=== PATIENT | female | born 1990 | race Caucasian/White ===

== ENCOUNTER → 2019-08-08 10:13 | Outpatient (BNVA) | payer MEDICAID, SELFPAY | PROVIDERS: PCP Nurse Practitioner Family; Visit Provider Anesthesiology | DX: M54.5 Low back pain (principal); F17.210 Nicotine dependence, cigarettes, uncomplicated; Z79.891 Long term (current) use of opiate analgesic | CPT/HCPCS: 99213; 99214 ==

== ENCOUNTER → 2019-09-28 11:15 | Outpatient (BNVA) | payer MEDICAID, SELFPAY | PROVIDERS: PCP Nurse Practitioner Family; Visit Provider Anesthesiology | DX: M54.5 Low back pain (principal); F11.90 Opioid use, unspecified, uncomplicated; F17.210 Nicotine dependence, cigarettes, uncomplicated | CPT/HCPCS: 99214 ==

== ENCOUNTER → 2019-12-27 12:54 | Outpatient (BNVA) | payer MEDICAID, SELFPAY | PROVIDERS: PCP Nurse Practitioner Family; Visit Provider Anesthesiology | DX: M54.5 Low back pain (principal); F17.210 Nicotine dependence, cigarettes, uncomplicated; Z79.891 Long term (current) use of opiate analgesic | CPT/HCPCS: 99213; 99214 ==

== ENCOUNTER → 2020-03-11 12:52 | Outpatient (BNVA) | payer MEDICAID, SELFPAY | PROVIDERS: PCP Nurse Practitioner Family; Visit Provider Anesthesiology | DX: M54.5 Low back pain (principal); F17.210 Nicotine dependence, cigarettes, uncomplicated; Z71.6 Tobacco abuse counseling; Z79.891 Long term (current) use of opiate analgesic | CPT/HCPCS: 99214 ==

== ENCOUNTER → 2020-05-06 10:58 | Outpatient (BNVA) | payer MEDICAID, SELFPAY | PROVIDERS: PCP Nurse Practitioner Family; Visit Provider Anesthesiology | DX: M54.5 Low back pain (principal); F17.210 Nicotine dependence, cigarettes, uncomplicated; Z79.891 Long term (current) use of opiate analgesic; Z71.6 Tobacco abuse counseling | CPT/HCPCS: 99213; 99214 ==

== ENCOUNTER → 2020-06-27 11:06 | Outpatient (BNVA) | payer MEDICAID, SELFPAY | PROVIDERS: PCP Nurse Practitioner Family; Visit Provider Anesthesiology | DX: M54.42 Lumbago with sciatica, left side (principal); F17.210 Nicotine dependence, cigarettes, uncomplicated; Z71.6 Tobacco abuse counseling; Z79.891 Long term (current) use of opiate analgesic | CPT/HCPCS: 99213; 99214 ==

== ENCOUNTER → 2020-09-05 07:58 | Outpatient (BNVA) | payer BC, MEDICAID, SELFPAY | PROVIDERS: PCP Nurse Practitioner Family; Visit Provider Anesthesiology | DX: M54.5 Low back pain (principal); F17.210 Nicotine dependence, cigarettes, uncomplicated; Z79.891 Long term (current) use of opiate analgesic; Z71.6 Tobacco abuse counseling | CPT/HCPCS: 99213; 99214 ==

== ENCOUNTER → 2020-10-16 11:59 | Outpatient (BNVA) | payer BC, MEDICAID, SELFPAY | PROVIDERS: PCP Nurse Practitioner Family; Visit Provider Specialist | DX: M79.606 Pain in leg, unspecified (principal) | CPT/HCPCS: 73590 ==

== ENCOUNTER → 2020-10-29 11:08 | Outpatient (BNVA) | payer BC, MEDICAID, SELFPAY | PROVIDERS: PCP Nurse Practitioner Family; Visit Provider Nurse Practitioner | DX: M54.5 Low back pain (principal); M79.604 Pain in right leg; M79.605 Pain in left leg; F17.210 Nicotine dependence, cigarettes, uncomplicated; Z79.891 Long term (current) use of opiate analgesic; Z71.6 Tobacco abuse counseling | CPT/HCPCS: 99215 ==

== ENCOUNTER 2020-11-04 09:11 | Outpatient (CLI) | payer BC, MEDICAID, SELFPAY ==
--- NOTE | 2020-11-04 09:17 | NM_ITS ---
WS: [id number] THREE-PHASE BONE SCAN HISTORY: M84.369A - Stress fracture, unspecified tibia and fibula, initial encounter for fracture COMPARISON: RIGHT tibia-fibula 10/16/2020 and 09/17/2020 Patient is is injected with 25.8 mCi Tc99m HDP intravenously. Immediate angiographic phase imaging is performed over the area of concern. Static blood pool imaging also performed. Two-hour whole-body sc intigrams performed in anterior and posterior projections. Additional large field of view imaging sub mitted as necessary. Angiographic and static blood pool phase imaging is normal central over the lower extremities. On the two-hour delayed imaging there is linear area of increased uptake along the proximal lateral t ibia. Moderate increased uptake is multifocal but extends along the expected location of the orthoped ic plate. On the lateral projection there is increased uptake along the lateral tibial plateau was sp aring centrally. On the prior recent radiograph there is no evidence for loosening or fracture. No change in the trabe cular pattern. NM/NM bone 3 phase [id number] IMPRESSION: 1. Moderate increased uptake along the proximal lateral tibial orthopedic plat e and across the tibial plateau. The area of increased uptake corresponds to th e orthopedic hardware. Radiographically no evidence for loosening is identified . With history of injury proceeding pain there may be some mild displacement or movement of the hardware. Also loosening without radiographic evidence should be considered as a possible etiology. 2. No evidence for an infection.
== END 2020-11-04 09:12 | disposition home or self-care (01) ==
LOC: NM 09:14
PROVIDERS: PCP Nurse Practitioner Family; Visit Provider Specialist
DX: M84.369A Stress fracture, unspecified tibia and fibula, initial encounter for fracture (principal); X58.XXXA Exposure to other specified factors, initial encounter
CPT/HCPCS: 78315; A9561

== ENCOUNTER 2020-11-24 13:11 | Outpatient (CLI) | payer BC, MEDICAID, SELFPAY ==
--- NOTE | 2020-11-24 13:16 | MR_ITS ---
WS: [id number] MRI BRAIN WITHOUT CONTRAST HISTORY: MEMORY IMPAIRMENT COMPARISON: 07/31/2014 TECHNIQUE: Diffusion imaging, multiplanar T1, T2 and FLAIR imaging obtained. No evidence for acute infarct or hemorrhage. Willett-white matter differentiation is normal. No remote or acute infarcts are volume loss. Ventricles and extra-axial spaces are normal. No inferior displacement of cerebellar tonsils. The sella turcica and pituitary gland are unremarkabl e. There is a well-circumscribed soft tissue mass superficial to the LEFT parotid gland. Mass is incompl etely visualized on all sequences. Mass is low signal on the T1 and increased on the T2 sequences. Ma ss measures 2.0 x 2.3 cm. New since 07/31/2014. No dural venous sinus abnormality. Focal narrowing in the RIGHT A1 segment is probably congenital. Paranasal sinuses: Clear. Mastoid air cells: Normal. Calvarium and scalp: Intact. MR/MR head wo con* [id number] IMPRESSION: 1. No infarct or significant white matter disease. 2. No significant atrophy. 3. Incompletely visualized mass superficial to the LEFT parotid gland. New mas s since 2014. Recommend follow-up ultrasound for further characterization. This mass should be palpable.
== END 2020-11-24 13:12 | disposition home or self-care (01) ==
PROVIDERS: PCP Nurse Practitioner Family; Visit Provider Nurse Practitioner Family
DX: R41.3 Other amnesia (principal); R22.0 Localized swelling, mass and lump, head
CPT/HCPCS: 70551

== ENCOUNTER → 2020-12-03 10:01 | Outpatient (BNVA) | payer BC, MEDICAID, SELFPAY | PROVIDERS: PCP Nurse Practitioner Family; Visit Provider Anesthesiology | DX: G89.29 Other chronic pain (principal); M54.5 Low back pain; M79.604 Pain in right leg; F17.210 Nicotine dependence, cigarettes, uncomplicated; Z71.6 Tobacco abuse counseling; Z79.891 Long term (current) use of opiate analgesic | CPT/HCPCS: 99214 ==

== ENCOUNTER 2020-12-05 18:03 | Outpatient (CLI) | payer BC, MEDICAID, SELFPAY ==
[2020-12-05 18:40] LABS: INR 1.01 (0.8-1.2)
[2020-12-05 18:41] LABS: Partial Thromboplastin Time 32.8 SECONDS (23.9-36.7)
== END 2020-12-05 18:04 | disposition home or self-care (01) ==
PROVIDERS: PCP Nurse Practitioner Family; Visit Provider Nurse Practitioner Family
DX: R23.8 Other skin changes (principal)
CPT/HCPCS: 85610; 85730

== ENCOUNTER 2021-01-15 14:00 | Outpatient (CLI) | payer BC, MEDICAID, SELFPAY ==
--- NOTE | 2021-01-15 14:07 | CT_ITS ---
WS: [id number] CT NECK WITH CONTRAST HISTORY: NEOPLASM OF PAROTID SALIVARY GLAND TECHNIQUE: Contiguous 5 mm axial images are performed through the neck with intravenous contrast. Sag ittal and coronal reformats are also submitted. All CT scans at [facility] use at least o ne of these dose optimization techniques: automated exposure control; mA and/or kV adjustment per pat ient size (includes targeted exams where dose is matched to clinical indication); or iterative recons truction. CONTRAST: CONTRAST: Omnipaque 300; 95 mL IV. DLP: 474.05 mGy.cm COMPARISON: MRI head 11/24/2020 Nasopharynx, oropharynx, hypopharynx and larynx are unremarkable. No soft tissue masses or abnormal e nhancement. Torus tubarius and fossa of Rosenmuller and parapharyngeal fat are normal. Small bilateral cervical chain lymph nodes are less than a centimeter. Largest lymph node is 9 mm at level IIa on the RIGHT. Submandibular glands are normal size. Normal RIGHT parotid gland. Again noted is the well-circumscrib ed homogeneous mass in the preauricular region abutting the LEFT superficial parotid lobe. This mass slightly displaces the parotid and may not actually be arising from the parotid gland but within the preauricular soft tissue. Mass measures 2.0 x 1.5 x 1.7 cm. There is also incomplete separation from the posterior masseter muscle on the LEFT. The retromandibular vein is not significantly displaced. No osseous abnormalities. Visualized portions of the skull base demonstrate no abnormalities. Orbits and globes are within norm al limits. No soft tissue masses. Visualized paranasal sinuses and mastoid air cells are normal. Lung apices are clear. CT/CT neck w con* [id number] IMPRESSION: 1. Well-circumscribed soft tissue mass in the LEFT preauricular space measures 2.0 cm in length by 1.5 x 1.7 cm. There is mass effect upon the superficial LE FT parotid lobe suggesting this may be external but inseparable from the paroti d. There is also contact on the masseter muscle. Mass does not significantly en duncan. Abnormal lymph node, Warthin tumor and first branchial cleft cyst should be considered. 2. Subcentimeter bilateral cervical chain lymph nodes.
[2021-01-15] MEDS: iohexol 300 mg/mL 100 mL Btl IV (14:33)
== END 2021-01-15 14:01 | disposition home or self-care (01) ==
PROVIDERS: PCP Nurse Practitioner Family; Visit Provider Specialist
DX: D37.030 Neoplasm of uncertain behavior of the parotid salivary glands (principal)
CPT/HCPCS: 70491

== ENCOUNTER → 2021-02-03 11:02 | Outpatient (BNVA) | payer BC, MEDICAID, SELFPAY | PROVIDERS: PCP Nurse Practitioner Family; Visit Provider Anesthesiology | DX: M54.5 Low back pain (principal); F17.210 Nicotine dependence, cigarettes, uncomplicated; Z79.891 Long term (current) use of opiate analgesic | CPT/HCPCS: 99213 ==

== ENCOUNTER → 2021-04-01 14:08 | Outpatient (BNVA) | payer BC, MEDICAID, SELFPAY | PROVIDERS: PCP Nurse Practitioner Family; Visit Provider Anesthesiology | DX: G89.29 Other chronic pain (principal); M54.5 Low back pain; F17.210 Nicotine dependence, cigarettes, uncomplicated; Z79.891 Long term (current) use of opiate analgesic | CPT/HCPCS: 99214 ==

== ENCOUNTER → 2021-04-08 11:03 | Outpatient (BNVA) | payer BC, MEDICAID, SELFPAY | PROVIDERS: PCP Nurse Practitioner Family; Visit Provider Internal Medicine Rheumatology | DX: M25.50 Pain in unspecified joint (principal); Z79.899 Other long term (current) drug therapy; M79.7 Fibromyalgia | CPT/HCPCS: 99203; 99204 ==

== ENCOUNTER 2021-04-10 16:50 | Outpatient (CLI) | payer BC, MEDICAID, SELFPAY ==
--- NOTE | 2021-04-10 17:07 | XRR_ITS ---
PROCEDURE INFORMATION: Exam: XR Right Hand Exam date and time: 04/10/2021 5:07 PM Age: 30 years old Clinical indication: Pain; Hand; Right; Additional info: M25.50 - pain in unspecified joint TECHNIQUE: Imaging protocol: XR Right hand. Views: 3 or more views. COMPARISON: No relevant prior studies available. FINDINGS: Bones/joints: Oblique lucency in the proximal 5th phalanx, on the oblique view only, is most likely a nutrient channel. No fracture is visualized on the other views. The bones are intact and in normal alignment. Soft tissues: Normal. XR/XR hand RT min 3V* [id number] IMPRESSION: 1. Lucency in the proximal 5th phalanx is most likely a nutrient channel. If there is a history of trauma and pain to this region, a hairline fracture cannot be entirely excluded. 2. Otherwise, no acute finding.
--- NOTE | 2021-04-10 17:07 | XRR_ITS ---
PROCEDURE INFORMATION: Exam: XR Left Hand Exam date and time: 04/10/2021 5:07 PM Age: 30 years old Clinical indication: Pain; Hand; Left; Prior surgery; Additional info: M25.50 - pain in unspecified joint TECHNIQUE: Imaging protocol: XR Left hand. Views: 3 or more views. COMPARISON: No relevant prior studies available. FINDINGS: Bones/joints: Metal plate and screws in the distal left radius, transversing an old healed fracture. The bones are intact and in normal alignment. Soft tissues: Normal. XR/XR hand LT min 3V* [id number] IMPRESSION: No acute finding.
[2021-04-10 18:20] LABS: C Reactive Protein 0.3 mg/L (0.0-4.9)
[2021-04-10 18:46] LABS: Erythrocyte Sedimentation Rate 5 mm/hr (0-15)
[2021-04-13 15:33] LABS: Cyclic Citrullinated Peptide <16 UNITS
[2021-04-23 15:52] LABS: Gliadin Ab.IgA 1.2 U/mL; Gliadin Ab.IgG <1.0 U/mL; Immunoglobulin A 269 mg/dL (47-310); Tissue Transglutaminase IgA Ab <1.0 U/mL; Tissue transglutaminase Ab.IgG <1.0 U/mL
== END 2021-04-10 16:51 | disposition home or self-care (01) ==
LOC: RAD 16:54
PROVIDERS: PCP Nurse Practitioner Family; Visit Provider Internal Medicine Rheumatology
DX: M25.50 Pain in unspecified joint (principal); M79.7 Fibromyalgia; Z79.899 Other long term (current) drug therapy
CPT/HCPCS: 36415; 73130; 82784; 83516; 85651; 86140

== ENCOUNTER → 2021-05-28 08:01 | Outpatient (BNVA) | payer BC, MEDICAID, SELFPAY | PROVIDERS: PCP Nurse Practitioner Family; Visit Provider Anesthesiology | DX: G89.29 Other chronic pain (principal); M54.50 Low back pain, unspecified; M79.7 Fibromyalgia; F17.210 Nicotine dependence, cigarettes, uncomplicated; Z71.6 Tobacco abuse counseling; Z79.891 Long term (current) use of opiate analgesic | CPT/HCPCS: 99214 ==

== ENCOUNTER → 2021-06-10 11:06 | Outpatient (BNVA) | payer BC, MEDICAID, SELFPAY | PROVIDERS: PCP Nurse Practitioner Family; Visit Provider Specialist | DX: G43.711 Chronic migraine without aura, intractable, with status migrainosus (principal); M79.7 Fibromyalgia; Z87.81 Personal history of (healed) traumatic fracture; F17.210 Nicotine dependence, cigarettes, uncomplicated | CPT/HCPCS: 99204 ==

== ENCOUNTER → 2021-07-30 08:01 | Outpatient (BNVA) | payer BC, MEDICAID, SELFPAY | PROVIDERS: PCP Nurse Practitioner Family; Visit Provider Anesthesiology | DX: G89.29 Other chronic pain (principal); M54.50 Low back pain, unspecified; M79.7 Fibromyalgia; F17.210 Nicotine dependence, cigarettes, uncomplicated; Z79.891 Long term (current) use of opiate analgesic | CPT/HCPCS: 99214 ==

== ENCOUNTER → 2021-08-11 15:40 | Outpatient (BNVA) | payer BC, MEDICAID, SELFPAY | PROVIDERS: PCP Nurse Practitioner Family; Visit Provider Specialist | DX: G43.711 Chronic migraine without aura, intractable, with status migrainosus (principal) | CPT/HCPCS: 99213; 99214 ==

== ENCOUNTER 2022-05-19 12:06 | Outpatient (CLI) | payer BC, MEDICAID, SELFPAY ==
--- NOTE | 2022-05-19 12:38 | XR_ITS ---
WS: [id number] Exam: XR chest 2V* [id number] Date/Time of Exam: 05/19/2022 12:42 PM Reason For Exam: NEOPLASM Comparison 03/28/2015. The lungs are clear and fully inflated. Normal cardiomediastinal silhouette. Several old left rib fra ctures noted. No pleural effusions. XR/XR chest 2V* [id number] IMPRESSION: 1. No acute cardiopulmonary finding.
== END 2022-05-19 12:07 | disposition home or self-care (01) ==
LOC: RAD 12:18
PROVIDERS: PCP Nurse Practitioner Family; Visit Provider Specialist
DX: D37.030 Neoplasm of uncertain behavior of the parotid salivary glands (principal)
CPT/HCPCS: 71046

== ENCOUNTER 2022-08-20 19:31 | Emergency (ER) | payer BC, MEDICAID, SELFPAY ==
[2022-08-20 19:42] VITALS: BP 121/74; PULSE 110; RESP 16; TEMP 37.6; O2SAT 100
--- NOTE | 2022-08-20 20:36 | W.ED.HA ---
HPI - Headache General: Chief Complaint: Headache Stated Complaint: headache Time Seen by Provider: 08/20/22 20:32 History of Present Illness: 32-year-old female comes in today with a severe headache. Patient reports this is her worst headache she is ever had. Patient reports that is different than her usual migraine. Patient states the headache started yesterday but woke up this morning in severe discomfort. Patient does have a history of chronic migraines, chronic neck pain, chronic low back pain, and long-term use of opiate analgesics. Patient reports no fever. Patient reports light sensitivity and nausea. Associated symptoms: Reports nausea; Deny fever(s) Review of Systems Const: Denies: fever(s) GI: Reports: nausea Musc: Reports: neck pain Neuro: Reports: headache(s) PFSH ED PFSH: Medical History Chronic narcotic use Encounter for long-term opiate analgesic use Encounter for smoking cessation counseling Fibromyalgia Hx of fracture of lower leg screws and plate in right leg Hx of fracture of wrist 2014 left Joint pain Low back pain Opioid contract exists Opioid contract exists Tobacco use Surgical History S/P ORIF (open reduction internal fixation) fracture Family History Father Cancer Mother Cancer Chronic kidney disease (CKD) Other CAD (coronary artery disease) Hypertension Lung disease Rheumatoid arthritis Denies family history of Diabetes Lupus Stroke Social History Alcohol intake: never Marital status: Single Current occupational status: employed History of recent travel: No Physical Exam Const: COMMON NORMALS: alert HENMT: COMMON NORMALS: normocephalic HEAD & SCALP: normocephalic Neck/C-Spine: COMMON NORMALS: full ROM and no meningeal signs Resp: COMMON NORMALS: normal respiratory effort Cardio: COMMON NORMALS: regular rate and regular rhythm RATE: regular rate RHYTHM: regular rhythm GI: COMMON NORMALS: Soft to palpation and non-tender PALPATION: Yes Soft to palpation Extremity: COMMON NORMALS: normal to inspection and full ROM Neuro: SENSORIUM/ORIENTATION: Yes alert MENINGEAL SIGNS: Yes no meningeal signs Skin: COMMON NORMALS: turgor normal GENERAL SKIN EXAM: turgor normal Course Vital Signs: Vital signs: Vital Signs Temperature 99.7 F H 08/20/22 19:42 Pulse Rate 89 08/20/22 22:21 Respiratory Rate 18 08/20/22 22:21 Blood Pressure 123/77 08/20/22 21:17 Pulse Oximetry 98 08/20/22 22:21 Oxygen Delivery Me thod 08/20/22 21:17 MDM - Headache Medical Decision Making 32-year-old female comes in today with complaints of severe headache. Patient describes as the worst headache she is ever had. On exam no focal neurodeficits. Patient moves all extremities well. No meningeal signs. Vital signs are normal. Differential diagnosis includes but not limited to migraine headache, tension headache, intervertebral disc disease, facet arthropathy, malingering. CT of the head and neck were unremarkable except for some mild sinusitis. Patient denies any sinus symptoms. CBC and CMP were unremarkable. CRP was bumped up a little bit at 27. No signs of infection or severe illness is noted. Patient was treated for migraine headache with IV medications including ketorolac, dexamethasone, Reglan, and morphine. Patient had improvement of headaches and was discharged to home with recommendations to continue routine care and follow-up with primary care. Patient stated understanding. Lab Data 08/20/22 20:53 08/20/22 20:53 Radiology Impressions Cervical Spine CT 08/20/22 20:40 IMPRESSION: No acute fracture. Head CT 08/20/22 20:40 IMPRESSION: 1. No acute intracranial abnormality. 2. Possibly acute right sphenoid, maxillary and frontal sinusitis. Laboratory Results WBC 10.7 10^3/uL (4.0-10.0) H 08/20/22 20:53 RBC 4.42 10^6/uL (4.1-5.3) 08/20/22 20:53 Hgb 12.2 g/dL (11.5-15.3) 08/20/22 20:53 Hct 38.9 % (37.0-47.0) 08/20/22 20:53 MCV 88.0 fl (81-99) 08/20/22 20:53 MCH 27.6 pg (28.0-34.0) L 08/20/22 20:53 MCHC 31.4 g/dL (30.0-36.0) 08/20/22 20:53 RDW 13.7 % (12.1-15.1) 08/20/22 20:53 Plt Count 252 10^3/cmm (130-400) 08/20/22 20:53 MPV 9.5 fL (7.4-10.4) 08/20/22 20:53 Neut % (Auto) 64.9 % 08/20/22 20:53 Lymph % (Auto) 25.0 % 08/20/22 20:53 Wells % (Auto) 8.1 % 08/20/22 20:53 Eos % (Auto) 1.5 % 08/20/22 20:53 Baso % (Auto) 0.3 % 08/20/22 20:53 Neut # (Auto) 6.97 10^3/uL (1.8-7.7) 08/20/22 20:53 Lymph # (Auto) 2.7 10^3/uL (0.8-4.8) 08/20/22 20:53 Wells # (Auto) 0.9 10^3/uL (0.2-0.9) 08/20/22 20:53 Eos # (Auto) 0.2 10^3/uL (0.0-0.8) 08/20/22 20:53 Baso # (Auto) 0.0 10^3/uL (0.0-0.1) 08/20/22 20:53 Nucleated RBC % (auto) 0 % 08/20/22 20:53 Nucleated RBCs # 0.0 /100WBC 08/20/22 20:53 Sodium 137 mmol/L (136-145) 08/20/22 20:53 Potassium 3.9 mmol/L (3.5-5.1) 08/20/22 20:53 Chloride 101 mmol/L (98-107) 08/20/22 20:53 Carbon Dioxide 28 mmol/L (22-29) 08/20/22 20:53 Anion Gap 11.9 (5-19) 08/20/22 20:53 BUN 10 mg/dL (6-20) 08/20/22 20:53 Creatinine 0.4 mg/dL (0.5-0.9) L 08/20/22 20:53 GFR Calculation 182.7 mL/min (90-130) H 08/20/22 20:53 Glucose 95 mg/dL (65-115) 08/20/22 20:53 Calculated Osmolality 283 mOsm/kg (285-295) L 08/20/22 20:53 Calcium 9.2 mg/dL (8.5-10.5) 08/20/22 20:53 Total Bilirubin 0.2 mg/dL (0.15-1.2) 08/20/22 20:53 AST 13 U/L (0-32) 08/20/22 20:53 ALT 11 U/L (0-33) 08/20/22 20:53 Alkaline Phosphatase 83 U/L (35-105) 08/20/22 20:53 C-Reactive Protein 29.2 mg/L (0.0-4.9) H 08/20/22 20:53 Total Protein 7.0 g/dL (6.6-8.7) 08/20/22 20:53 Albumin 4.2 g/dL (3.5-5.2) 08/20/22 20:53 Globulin 2.8 g/dL (1.3-4.6) 08/20/22 20:53 Discharge Plan Discharge Patient Disposition: Home Clinical Impression: Migraine Qualifiers: Migraine type: unspecified Status migrainosus presence: with status migrainosus Intractability: intractable Qualified Code(s): G43.911 - Migraine, unspecified, intractable, with status migrainosus Condition: Stable Prescriptions: No Action hydrocodone-acetaminophen 10-325 mg tablet 1 tab PO .5 times a day PRN (Reason: pain) 30 Days Qty: 150 0RF Rx Instructions: fill on or after 08/04/21 hydrocodone-acetaminophen 10-325 mg tablet 1 tab PO .5 times a day PRN (Reason: pain) 30 Days Qty: 150 0RF Rx Instructions: fill on or after 09/03/21 propranolol 10 mg tablet 10 mg PO BID Qty: 60 3RF Savella 50 mg tablet 50 mg PO BID 30 Days Qty: 60 1RF amitriptyline 25 mg tablet See Rx Instructions .ROUTE .COMPLEX Qty: 30 0RF Dose Instruction: TAKE 1 TABLET BY MOUTH AT BEDTIME Rx Instructions: TAKE 1 TABLET BY MOUTH AT BEDTIME Discharge Orders: Discharge ED (Routine); Ordered 08/20/22 Ordered By: Cesar [place] Referrals: Shai,Kelsea, [employer] [Primary Care Provider] - Discharge Diet: Usual diet Discharge Activity: Increase activity as tolerated Patient Instructions: Headache Activity Restrictions/Additional Instructions: Home and rest. Drink plenty of fluids. Continue with routine care as directed. Follow-up with primary care for further instruction. Return to ED for new concerns. 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
--- NOTE | 2022-08-20 20:40 | CTR_ITS ---
PROCEDURE INFORMATION: Exam: CT Cervical Spine Without Contrast Exam date and time: 08/20/2022 9:03 PM Age: 32 years old Clinical indication: Neck pain; Additional info: Neck pain, headache TECHNIQUE: Imaging protocol: Computed tomography of the cervical spine without contrast. Radiation optimization: All CT scans at this facility use at least one of these dose optimization techniques: automated exposure control; mA and/or kV adjustment per patient size (includes targeted exams where dose is matched to clinical indication); or iterative reconstruction. Other protocol: This patient has received [address] and 0 known cardiac nuclear medicine studies in the 12 months prior to the current study. COMPARISON: CR XR cervical spine 3V* [id number] 09/19/2018 12:29 PM RADIATION DOSE METRICS: Total DLP (mGy-cm): 175.87 FINDINGS: Bones/joints: Spinal alignment is normal. Vertebral body height is maintained. No acute fracture. No spinal canal stenosis. Lungs: Lung apices are clear. Soft tissues: There is a 5 mm nodule or cyst superficial to the left parotid gland which measured 18 mm on 01/15/2021. CT/CT cervical spin wo con* [id number] IMPRESSION: No acute fracture.
--- NOTE | 2022-08-20 20:40 | CTR_ITS ---
PROCEDURE INFORMATION: Exam: CT Head Without Contrast Exam date and time: 08/20/2022 8:59 PM Age: 32 years old Clinical indication: Pain; Headache; Migraine; Additional info: Headache, most severe TECHNIQUE: Imaging protocol: Computed tomography of the head without contrast. Radiation optimization: All CT scans at this facility use at least one of these dose optimization techniques: automated exposure control; mA and/or kV adjustment per patient size (includes targeted exams where dose is matched to clinical indication); or iterative reconstruction. Other protocol: This patient has received [address] and 0 known cardiac nuclear medicine studies in the 12 months prior to the current study. COMPARISON: MR head wo con* [id number] 11/24/2020 11:18 AM RADIATION DOSE METRICS: Total DLP (mGy-cm): 1091.5 FINDINGS: Brain: The brain is unremarkable. There is no mass effect or significant white matter disease. There is no acute intracranial hemorrhage. Cerebral ventricles: There is no significant ventricular dilation. The basal cisterns are unremarkable. Paranasal sinuses: There is marked mucosal thickening in the right maxillary sinus and in the common sphenoid sinus. There is an air-fluid level in the sphenoid sinus. There is mucosal thickening in the right frontal sinus. Mastoid air cells: The mastoid air cells are clear. Bones/joints: The calvarium is intact. Soft tissues: The visible extracranial soft tissues are unremarkable. CT/CT head wo con* [id number] IMPRESSION: 1. No acute intracranial abnormality. 2. Possibly acute right sphenoid, maxillary and frontal sinusitis.
[2022-08-20 21:02] LABS: Basophils % 0.3 %; Eosinophils # 0.2 10^3/uL (0.0-0.8); Eosinophils % 1.5 %; Hematocrit 38.9 % (37.0-47.0); Hemoglobin 12.2 g/dL (11.5-15.3); Lymphocytes # 2.7 10^3/uL (0.8-4.8); Mean Corpuscular HGB Conc 31.4 g/dL (30.0-36.0); Mean Corpuscular Hemoglobin 27.6 pg (28.0-34.0); Mean Platelet Volume 9.5 fL (7.4-10.4); Monocytes # 0.9 10^3/uL (0.2-0.9); Monocytes % 8.1 %; Neutrophils # 6.97 10^3/uL (1.8-7.7); Neutrophils % 64.9 %; Nucleated Red Blood Cells % 0 %; Platelet Count 252 10^3/cmm (130-400); Red Blood Count 4.42 10^6/uL (4.1-5.3); Red Cell Distribution Width 13.7 % (12.1-15.1); White Blood Count 10.7 10^3/uL (4.0-10.0)
[2022-08-20 21:17] VITALS: BP 123/77; PULSE 113; RESP 22; O2SAT 98
[2022-08-20 21:17] LABS: Alanine Aminotransferase 11 U/L (0-33); Albumin Level 4.2 g/dL (3.5-5.2); Alkaline Phosphatase 83 U/L (35-105); Anion Gap 11.9 (5-19); Aspartate Amino Transferase 13 U/L (0-32); Blood Urea Nitrogen 10 mg/dL (6-20); C Reactive Protein 29.2 mg/L (0.0-4.9); Calcium 9.2 mg/dL (8.5-10.5); Carbon Dioxide 28 mmol/L (22-29); Chloride 101 mmol/L (98-107); Globulin 2.8 g/dL (1.3-4.6); Glomerular Filtration Rate 182.7 mL/min (90-130); Glucose 95 mg/dL (65-115); Osmolality Calculated 283 mOsm/kg (285-295); Potassium 3.9 mmol/L (3.5-5.1); Sodium 137 mmol/L (136-145); Total Bilirubin 0.2 mg/dL (0.15-1.2)
[2022-08-20] MEDS: metoclopramide 5 mg/mL SDV 2 mL 10 MG IVP (21:29)
[2022-08-20] MEDS: sodium chloride 0.9% 500 ML 999 ML IV (21:29)
[2022-08-20] MEDS: dexamethasone 4 mg/mL INJ 8 MG IVP (21:30)
[2022-08-20] MEDS: morphine 4 mg/mL SDV 1 mL IVP (21:31)
[2022-08-20] MEDS: ketorolac 30 mg/mL INJ IVP (21:31)
[2022-08-20 22:21] VITALS: PULSE 89; RESP 18; O2SAT 98
== END 2022-08-20 22:22 | disposition home or self-care (01) ==
PROVIDERS: Emergency Provider Nurse Practitioner Family; PCP Nurse Practitioner Family
DX: G43.911 Migraine, unspecified, intractable, with status migrainosus (principal)
CPT/HCPCS: 36415; 70450; 72125; 80053; 85025; 86140; 96361; 96374; 96375; 99285; J1100; J1885; J2270; J2765; J7040

== ENCOUNTER 2023-09-01 15:56 | Emergency (ER) | payer MEDICAID, SELFPAY ==
[2023-09-01 15:59] VITALS: BP 132/87; PULSE 112; RESP 16; TEMP 36.7; O2SAT 100
--- NOTE | 2023-09-01 16:03 | USR_ITS ---
PROCEDURE INFORMATION: Exam: US Abdomen, Limited; Right Upper Quadrant Exam date and time: 09/01/2023 4:49 PM Age: 33 years old Clinical indication: Abdominal pain; Additional info: Ruq pain TECHNIQUE: Imaging protocol: Real time ultrasound of the abdomen with image documentation. Limited exam focused on the right upper quadrant. COMPARISON: US gall bladder [id number] 07/04/2018 2:53 PM FINDINGS: Liver: Normal. No masses. Gallbladder: There is gallbladder sludge with small gallstones. Sonographic Toscano's sign is positive. No gallbladder wall thickening with the gallbladder wall measuring 2.4 mm. No pericholecystic fluid. Biliary ducts: The CBD measures 8.6 mm. No definite CBD stone is visualized. Pancreas: Visualized pancreas is unremarkable. Right kidney: Normal. No mass. No hydronephrosis. The right kidney measures 11.6 x 6.1 x 6.4 cm. There is mild pelviectasis. US/US gall bladder [id number] IMPRESSION: 1. Cholelithiasis with positive Toscano's sign. No over distended gallbladder, pericholecystic fluid or gallbladder wall thickening to suggest sonographic signs of acute cholecystitis. However early acute cholecystitis can have this appearance. 2. Dilated CBD at the level of the nathan hepatis suggestive of distal CBD obstruction by possible gallstone.
--- NOTE | 2023-09-01 16:21 | ED_ITS ---
HPI - Abdominal Pain 2 General: Chief Complaint: Abdominal Pain Stated Complaint: N/V, abd pain Time Seen by Provider: 09/01/23 16:05 Source: patient Mode of arrival: ambulatory Limitations: no limitations History of Present Illness: 33-year-old female states been having ab dominal pain over the last 2 days states pain is in her right upper quadrant seems to radiate to her back she has had some nausea she denies any vomiting or diarrhea. States pain sharp in nature rates it a 7 out of 10 denies any chest pain denies any fevers. Associated Symptoms: Denies chills, diarrhea, fever(s), nausea and vomiting Review of Systems 2 Const: Denies: fever(s), chills, body aches or change in appetite ENMT: Denies: throat pain or dental pain Card: Denies: chest pain Resp: Denies: dyspnea GI: Reports: abdominal pain; Denies: nausea, vomiting or diarrhea Musc: Denies: neck pain or back pain Skin/Breast: Denies: rash Neuro: Denies: headache(s) PFSH ED 2 PFSH: Medical History Joint pain Fibromyalgia Opioid contract exists Encounter for smoking cessation counseling Encounter for long-term opiate analgesic use Opioid contract exists Hx of fracture of lower leg screws and plate in right leg Hx of fracture of wrist 2014 left Tobacco use Chronic narcotic use Low back pain Surgical History S/P ORIF (open reduction internal fixation) fracture Family History Father Cancer Mother Cancer Chronic kidney disease (CKD) Other CAD (coronary artery disease) Hypertension Lung disease Rheumatoid arthritis Denies family history of Diabetes Lupus Stroke Social History Alcohol intake: never Substance/Drug Use: never Marital status: Single Current occupational status: employed Physical Exam 2 Const: COMMON NORMALS: no acute distress, patient oriented x3 and healthy appearing HENMT: COMMON NORMALS: normocephalic and atraumatic HEAD & SCALP: n ormocephalic and atraumatic Neck/C-Spine: COMMON NORMALS: full ROM and supple Chest: COMMONS NORMALS: normal inspection of the chest Resp: COMMON NORMALS: normal respiratory effort Cardio: COMMON NORMALS: regular rate, regular rhythm and No murmurs present (Cardio) RATE: regular rate RHYTHM: regular rhythm GI: COMMON NORMALS: Normal to inspection, nondistended, normoactive bowel sounds present, Soft to palpation and no masses PALPATION: Yes Soft to palpation and Yes Tenderness to palpation present (GI) Details: RUQ Extremity: COMMON NORMALS: normal to inspection and full ROM Neuro: COMMON NORMALS: patient oriented x3, moves all extremities and no focal motor deficits Psych: COMMON NORMALS: mental status grossly normal, Normal thought process present and cooperative THOUGHT PROCESS: Normal thought process present Skin: COMMON NORMALS: no rashes or lesions noted and no wounds GENERAL SKIN EXAM: no rashes or lesions noted Course 2 Vital Signs: Vital signs: Vital Signs Temperature 98.1 F 09/01/23 15:59 Pulse Rate 112 H 09/01/23 15:59 Respiratory Rate 16 09/01/23 15:59 Blood Pressure 122/86 09/01/23 17:01 Pulse Oximetry 100 09/01/23 17:01 Oxygen Delivery Me thod Room Air 09/01/23 17:01 MDM - Abdominal Pain Medical Decision Making Patient presents with abdominal pain consistent with biliary colic ultrasound did show gallstones no signs of acute cholecystitis her pain is much improved here abdominal exam is benign at discharge. Will start Augmentin along with pain meds nausea medicine we will get her follow-up with surgery she is return if worsening she understands agrees to plan. Medical Records I reviewed the patient's medical records. Lab Data I reviewed the patient's lab results. 09/01/23 16:38 09/01/23 16:38 Labs/Radiology: Radiology Impressions Gallbladder Ultrasound 09/01/23 16:03 IMPRESSION: 1. Cholelithiasis with positive Toscano's sign. No over distended gallbladder, pericholecystic fluid or gallbladder wall thickening to suggest sonographic signs of acute cholecystitis. However early acute cholecystitis can have this appearance. 2. Dilated CBD at the level of the nathan hepatis suggestive of distal CBD obstruction by possible gallstone. Laboratory Results WBC 5.83 10^3/uL (3.29-11.43) 09/01/23 16:38 RBC 4.82 10^6/uL (3.85-5.65) 09/01/23 16:38 Hgb 13.30 g/dL (11.27-16.99) 09/01/23 16:38 Hct 42.3 % (36-47) 09/01/23 16:38 MCV 87.8 fl (85-98) 09/01/23 16:38 MCH 27.6 pg (27-33) 09/01/23 16:38 MCHC 31.4 g/dL (30-55) 09/01/23 16:38 RDW 13.1 % (12.1-15.1) 09/01/23 16:38 Plt Count 257 10^3/cmm (157-399) 09/01/23 16:38 MPV 9.6 fL (7.4-10.4) 09/01/23 16:38 Neut % (Auto) 56.6 % 09/01/23 16:38 Lymph % (Auto) 37.2 % 09/01/23 16:38 [place]bar[place] % (Auto) 4.3 % 09/01/23 16:38 Eos % (Auto) 1.5 % 09/01/23 16:38 Baso % (Auto) 0.2 % 09/01/23 16:38 Neut # (Auto) 3.30 10^3/uL (1.8-7.7) 09/01/23 16:38 Lymph # (Auto) 2.2 10^3/uL (0.8-4.8) 09/01/23 16:38 [place]barger # (Auto) 0.3 10^3/uL (0.2-0.9) 09/01/23 16:38 Eos # (Auto) 0.1 10^3/uL (0.0-0.8) 09/01/23 16:38 Baso # (Auto) 0.0 10^3/uL (0.0-0.1) 09/01/23 16:38 Nucleated RBC % (auto) 0 % 09/01/23 16:38 Nucleated RBCs # 0.0 /100WBC 09/01/23 16:38 Sodium 137 mmol/L (136-145) 09/01/23 16:38 Potassium 3.6 mmol/L (3.5-5.1) 09/01/23 16:38 Chloride 99 mmol/L (98-107) 09/01/23 16:38 Carbon Dioxide 28 mmol/L (22-29) 09/01/23 16:38 Anion Gap 13.6 (5-19) 09/01/23 16:38 BUN 7 mg/dL (6-20) 09/01/23 16:38 Creatinine 0.5 mg/dL (0.5-0.9) 09/01/23 16:38 GFR Calculation 140.4 mL/min (90-130) H 09/01/23 16:38 Glucose 91 mg/dL (65-115) 09/01/23 16:38 Calculated Osmolality 282 mOsm/kg (285-295) L 09/01/23 16:38 Calcium 9.5 mg/dL (8.5-10.5) 09/01/23 16:38 Total Bilirubin 0.2 mg/dL (0.15-1.2) 09/01/23 16:38 AST 16 U/L (0-32) 09/01/23 16:38 ALT 17 U/L (0-33) 09/01/23 16:38 Alkaline Phosphatase 84 U/L (35-105) 09/01/23 16:38 Total Protein 7.4 g/dL (6.6-8.7) 09/01/23 16:38 Albumin 4.4 g/dL (3.5-5.2) 09/01/23 16:38 Globulin 3.0 g/dL (1.3-4.6) 09/01/23 16:38 Lipase 11 U/L (13-60) L 09/01/23 16:38 HCG, Qual Negative (Negative) 09/01/23 16:38 Urine Color Colorless (Yellow) 09/01/23 16:35 Urine Appearance Clear (CLEAR) 09/01/23 16:35 Urine pH 7 (5-7) 09/01/23 16:35 Ur Specific [place] 1.005 (1.005-1.030) 09/01/23 16:35 Urine Protein Neg (Negative) 09/01/23 16:35 Urine Glucose (UA) Norm (Normal) 09/01/23 16:35 Urine Ketones Negative (Negative) 09/01/23 16:35 Urine Blood Neg (Negative) 09/01/23 16:35 Urine Nitrate Negative (Negative) 09/01/23 16:35 Urine Bilirubin Neg (Negative) 09/01/23 16:35 Urine Urobilinogen Norm mg/dL (Negative) 09/01/23 16:35 Ur Leukocyte Esterase Negative (Negative) 09/01/23 16:35 All radiology interpretation(s) finalized by discharge Discharge Plan Discharge Patient Disposition: Home Clinical Impression: Biliary colic Cholelithiasis Qualifiers: Cholecystitis presence: without cholecystitis Biliary obstruction: without biliary obstruction Condition: Stable Prescriptions: New hydrocodone-acetaminophen 5-325 mg tablet 1 tab PO Q6H PRN (Reason: pain) Qty: 14 0RF ondansetron 4 mg tablet,disintegrating 4 mg PO Q6H PRN (Reason: nausea and vomiting) Qty: 14 0RF Augmentin 500-125 mg tablet 1 tab PO BID Qty: 14 0RF No Action hydrocodone-acetaminophen 10-325 mg tablet 1 tab PO .5 times a day PRN (Reason: pain) 30 Days Qty: 150 0RF Rx Instructions: fill on or after 08/04/21 hydrocodone-acetaminophen 10-325 mg tablet 1 tab PO .5 times a day PRN (Reason: pain) 30 Days Qty: 150 0RF Rx Instructions: fill on or after 09/03/21 fluoxetine 40 mg capsule PO DAILY omeprazole 20 mg capsule,delayed release(DR/EC) PO erythromycin 5 mg/gram (0.5 %) ointment 0.5 inch ophthalmic (eye) QID 7 Days Qty: 3.5 0RF amitriptyline 25 mg tablet See Rx Instructions .ROUTE .COMPLEX Qty: 30 0RF Dose Instruction: TAKE 1 TABLET BY MOUTH AT BEDTIME Rx Instructions: TAKE 1 TABLET BY MOUTH AT BEDTIME Discharge Orders: Discharge ED (Routine); Ordered 09/01/23 Ordered By: Jessa Orozco Referrals: Ramiro Diaz MD [Physician] - 1-3 days Kelsea Gibbons FNP [Primary Care Provider] - Discharge Diet: Advance as tolerated Discharge Activity: Resume usual activity Patient Instructions: Biliary Colic (ED), Opioid Safety Coding 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
[2023-09-01] MEDS: HYDROmorphone 1 mg/mL INJ 1 mL IVP (16:40)
[2023-09-01] MEDS: ondansetron 2 mg/ML SDV 2 mL 4 MG IVP (16:40)
[2023-09-01] MEDS: sodium chloride 0.9% 1,000 ML 999 ML IV (16:41)
[2023-09-01 17:01] VITALS: BP 122/86; O2SAT 100
[2023-09-01 17:06] LABS: Basophils % 0.2 %; Eosinophils # 0.1 10^3/uL (0.0-0.8); Eosinophils % 1.5 %; Hematocrit 42.3 % (36-47); Lymphocytes # 2.2 10^3/uL (0.8-4.8); Lymphocytes % 37.2 %; Mean Corpuscular HGB Conc 31.4 g/dL (30-55); Mean Corpuscular Hemoglobin 27.6 pg (27-33); Mean Corpuscular Volume 87.8 fl (85-98); Mean Platelet Volume 9.6 fL (7.4-10.4); Monocytes # 0.3 10^3/uL (0.2-0.9); Monocytes % 4.3 %; Neutrophils % 56.6 %; Nucleated Red Blood Cells % 0 %; Platelet Count 257 10^3/cmm (157-399); Red Blood Count 4.82 10^6/uL (3.85-5.65); Red Cell Distribution Width 13.1 % (12.1-15.1); White Blood Count 5.83 10^3/uL (3.29-11.43)
[2023-09-01 17:08] LABS: Add Urine Microscopic? NO; Charge for UA Resulting for Rev
[2023-09-01 17:13] LABS: Specific Gravity, Urine 1.005 (1.005-1.030); Urine Appearance Clear (CLEAR); Urine Color Colorless (Yellow); pH Urine 7 (5-7)
[2023-09-01 17:14] LABS: Bilirubin Urine Neg (Negative); Blood Urine Neg (Negative); Glucose Urine UA Norm (Normal); Ketones Urine Negative (Negative); Leukocyte Esterase Urine Negative (Negative); Nitrate Urine Negative (Negative); Protein Urine Neg (Negative); Urobilinogen Urine Norm (Negative)
[2023-09-01 17:25] LABS: Alanine Aminotransferase 17 U/L (0-33); Albumin Level 4.4 g/dL (3.5-5.2); Alkaline Phosphatase 84 U/L (35-105); Anion Gap 13.6 (5-19); Aspartate Amino Transferase 16 U/L (0-32); Blood Urea Nitrogen 7 mg/dL (6-20); Calcium 9.5 mg/dL (8.5-10.5); Carbon Dioxide 28 mmol/L (22-29); Chloride 99 mmol/L (98-107); Glomerular Filtration Rate 140.4 mL/min (90-130); Glucose 91 mg/dL (65-115); Lipase 11 U/L (13-60); Osmolality Calculated 282 mOsm/kg (285-295); Potassium 3.6 mmol/L (3.5-5.1); Sodium 137 mmol/L (136-145); Total Bilirubin 0.2 mg/dL (0.15-1.2); Total Protein 7.4 g/dL (6.6-8.7)
[2023-09-01 17:35] LABS: HCG, Serum Qual Negative (Negative)
[2023-09-01] MEDS: HYDROcodone-acetaminophen 7.5-325 mg Tablet 1 TAB PO (18:40)
--- NOTE | 2023-09-01 19:44 | DCPLANNER ---
Message sent to General surgery for a referral for ABD Pain
== END 2023-09-01 18:41 | disposition home or self-care (01) ==
PROVIDERS: Emergency Provider Emergency Medicine; PCP Nurse Practitioner Family
DX: K80.20 Calculus of gallbladder without cholecystitis without obstruction (principal)
CPT/HCPCS: 76705; 80053; 81003; 83690; 84703; 85025; 96361; 96374; 96375; 99284; J1170; J2405; J7030

== ENCOUNTER 2023-09-16 14:32 | Outpatient (CLI) | payer BC, MEDICAID, SELFPAY ==
[2023-09-16 15:15] LABS: Basophils % 0.3 %; Eosinophils # 0.1 10^3/uL (0.0-0.8); Eosinophils % 1.6 %; Hematocrit 40.1 % (36-47); Lymphocytes # 2.7 10^3/uL (0.8-4.8); Lymphocytes % 44.1 %; Mean Corpuscular HGB Conc 31.9 g/dL (30-55); Mean Corpuscular Hemoglobin 27.8 pg (27-33); Mean Platelet Volume 9.4 fL (7.4-10.4); Monocytes # 0.3 10^3/uL (0.2-0.9); Monocytes % 4.9 %; Neutrophils # 2.98 10^3/uL (1.8-7.7); Neutrophils % 48.9 %; Nucleated Red Blood Cells % 0 %; Platelet Count 310 10^3/cmm (157-399); Red Blood Count 4.61 10^6/uL (3.85-5.65); Red Cell Distribution Width 13.2 % (12.1-15.1)
[2023-09-16 15:35] LABS: Alanine Aminotransferase 9 U/L (0-33); Albumin Level 4.2 g/dL (3.5-5.2); Alkaline Phosphatase 80 U/L (35-105); Anion Gap 9.8 (5-19); Aspartate Amino Transferase 11 U/L (0-32); Blood Urea Nitrogen 10 mg/dL (6-20); Calcium 9.4 mg/dL (8.5-10.5); Carbon Dioxide 29 mmol/L (22-29); Chloride 102 mmol/L (98-107); Globulin 2.8 g/dL (1.3-4.6); Glomerular Filtration Rate 140.4 mL/min (90-130); Glucose 103 mg/dL (65-115); Osmolality Calculated 283 mOsm/kg (285-295); Potassium 3.8 mmol/L (3.5-5.1); Sodium 137 mmol/L (136-145); Total Bilirubin 0.2 mg/dL (0.15-1.2)
== END 2023-09-16 14:33 | disposition home or self-care (01) ==
LOC: LAB 14:34
PROVIDERS: PCP Nurse Practitioner Family; Visit Provider Surgery
DX: K59.00 Constipation, unspecified (principal); R10.9 Unspecified abdominal pain; R19.7 Diarrhea, unspecified
CPT/HCPCS: 36415; 80048; 80076; 85025

== ENCOUNTER 2023-11-28 11:38 | Outpatient (CLI) | payer MEDICAID, SELFPAY ==
--- NOTE | 2023-11-28 11:45 | MR_ITS ---
WS: [id number] MRI/MRCP OF THE ABDOMEN WITHOUT GADOLINIUM ENHANCEMENT TECHNIQUE: Coronal T2 Fase BH, Axial T2 Fase BH, Axial T2 FS BH, Zxial 3D Crain BH, Axial DWI BH, 2D MRCP Radial BH, 3D MRCP (Resp), and Axial 3D Dyn BH Post sequences. CLINICAL INFORMATION: abdominal pain COMPARISON: Ultrasound 09/01/2023 FINDINGS: Fluid distended gallbladder. No gallbladder wall thickening or pericholecystic fluid. Cholelithiasis. Dilated proximal common bile duct measuring 8.5 mm. Distal common bile duct tapering at the pancreat ic head. No visualized obstructing calculi. Normal pancreatic duct. No evidence of pancreatic head le thomas. No intrahepatic biliary ductal dilatation. No hydronephrosis in either kidney. MR/MR MRCP [id number] Impression: 1. Cholelithiasis. No gallbladder wall thickening or pericholecystic fluid. 2. Dilated proximal common bile duct measuring 8.5 mm with distal tapering. No visualized obstructing common bile duct lesions. 3. Normal pancreatic duct. 4. No other acute findings.
== END 2023-11-28 11:39 | disposition home or self-care (01) ==
LOC: RAD 11:38
PROVIDERS: PCP Nurse Practitioner Family; Visit Provider Surgery
DX: K80.20 Calculus of gallbladder without cholecystitis without obstruction (principal); K83.8 Other specified diseases of biliary tract; R10.9 Unspecified abdominal pain; K59.00 Constipation, unspecified; R19.7 Diarrhea, unspecified
CPT/HCPCS: 74181

== ENCOUNTER 2023-12-05 12:05 | Outpatient (CLI) | payer MEDICAID, SELFPAY ==
--- NOTE | 2023-12-05 12:15 | MR_ITS ---
WS: [id number] MRI BRAIN WITH AND WITHOUT CONTRAST HISTORY: G43.711 - Chronic migraine without aura, intractable, wit... COMPARISON: 11/24/2020 TECHNIQUE: Multiplanar imaging performed through the brain with MultiHance 11 ml's IV. No acute infarcts are seen. Willett-white matter differentiation is well preserved. No susceptibility artifacts or prior lacunar infarcts. Normal hippocampal formations. Ventricles and extra-axial spaces are normal. Clivus and pituitary gland are normal. Visualized posterior fossa and brainstem are also normal. Postcontrast images are negative for masses or vascular malformations. Dural venous sinuses are normal. Previously described mass in the superficial LEFT parotid gland is not visualized today. Paranasal sinuses: Mild frothy secretions in the RIGHT maxillary sinus are new. No air-fluid levels. Mastoid air cells: Normal. Calvarium and scalp: Normal. MR/MR head wo/w con [id number] IMPRESSION: 1. Normal MRI brain with contrast. 2. Normal hippocampal formations.
[2023-12-05] MEDS: gadobenate dimeglumine 20 mL vial IV (12:47)
== END 2023-12-05 12:06 | disposition home or self-care (01) ==
LOC: RAD 12:06
PROVIDERS: PCP Nurse Practitioner Family; Visit Provider Psychiatry & Neurology Neurology
DX: G43.711 Chronic migraine without aura, intractable, with status migrainosus (principal); R56.9 Unspecified convulsions; I61.9 Nontraumatic intracerebral hemorrhage, unspecified
CPT/HCPCS: 70553; A9577

== ENCOUNTER 2024-04-25 20:17 | Emergency (ER) | payer SELFPAY ==
[2024-04-25 20:21] VITALS: BP 133/88; PULSE 84; RESP 16; TEMP 36.7; O2SAT 100
--- NOTE | 2024-04-25 20:35 | W.ED.DENTAL ---
HPI - Dental/Oral General: Chief complaint: Dental/Oral Stated complaint: Mouth Pain Time Seen by Provider: 04/25/24 20:24 Source: patient Mode of arrival: ambulatory Limitations: no limitations History of Present Illness: Patient is a 33-year-old female presenting to the emergency department planing of right upper dental pain beginning at midnight. States that she was told by a friend who does holistic therapies, to eat up raisins and milk and placed them on her gum to dry out infection, states that this helped initially with her pain to her right upper dentition, however it has slowly worsened. She does have an appointment with a dentist, though it is in a month. Pain is slightly worsened, caused her to leave [facility]. Pain noted to radiate to the right face and right ear. No other symptoms reported at this time. MD Complaint: tooth pain Onset (ago): hour(s) Duration: worsening Severity: severe Severity scale (1-10): 10 Context: poor dental care Associated symptoms: Denies ear or mastoid pain or fever(s) Related Data Home Medications Medication Instructions Recorded Confirmed fluoxetine 40 mg capsule mg PO DAILY 07/28/23 01/17/24 omeprazole 20 mg capsule,delayed mg PO 07/28/23 01/17/24 release Previous Rx's Medication Instructions Recorded hydrocodone 10 mg-acetaminophen 1 tab PO .5 times a day PRN pain 07/30/21 325 mg tablet 30 days #150 tabs hydrocodone 10 mg-acetaminophen 1 tab PO .5 times a day PRN pain 07/30/21 325 mg tablet 30 days #150 tabs amitriptyline 25 mg tablet See Rx Instructions .Route 12/28/21 .COMPLEX #30 tabs hydrocodone 5 mg-acetaminophen 325 1 tab PO Q6H PRN pain #14 tabs 09/01/23 mg tablet amoxicillin 875 mg-potassium 1 tab PO BID 10 days #20 tabs 04/25/24 clavulanate 125 mg tablet prednisone 20 mg tablet 60 mg (3 x 20 mg) PO ONCE 5 days 04/25/24 #15 tabs Allergies Allergy/AdvReac Type Severity Reaction Status Date / Time codeine Allergy NA Verified 04/25/24 20:24 Sulfa (Sulfonamide Allergy NA Verified 04/25/24 20:24 Antibiotics) Review of Systems General: Reports: 10 or more systems reviewed and unremarkable except in HPI and below Const: Denies: fever(s), chills or fatigue Eyes: Denies: change in vision ENMT: Reports: dental pain and sinus pain; Denies: throat pain, ear or mastoid pain or nasal discharge Card: Denies: chest pain, palpitations, swelling of feet/ankles or lightheadedness Resp: Denies: dyspnea, productive cough or wheezing GI: Denies: abdominal pain, nausea, vomiting, diarrhea or constipation : Denies: flank pain, difficulty voiding, dysuria or urinary frequency Musc: Denies: neck pain, back pain or joint pain Skin/Breast: Denies: rash Neuro: Denies: headache(s), numbness in extremities or weakness in extremities PFSH ED PFSH: Medical History Joint pain Fibromyalgia Opioid contract exists Encounter for smoking cessation counseling Encounter for long-term opiate analgesic use Opioid contract exists Hx of fracture of lower leg screws and plate in right leg Hx of fracture of wrist 2014 left Tobacco use Chronic narcotic use Low back pain Surgical History S/P ORIF (open reduction internal fixation) fracture Family History Father Cancer Mother Cancer Chronic kidney disease (CKD) Other CAD (coronary artery disease) Hypertension Lung disease Rheumatoid arthritis Denies family history of Diabetes Lupus Stroke Social History Alcohol intake: never Substance/Drug Use: never Marital status: Single Current occupational status: employed Physical Exam Const: COMMON NORMALS: no limitations GENERAL APPEARANCE: cooperative and well developed ORIENTATION/CONSCIOUSNESS: Yes awake OTHER: Appears in mild acute distress due to facial pain HENMT: COMMON NORMALS: normocephalic, atraumatic and hearing grossly normal bilaterally HEAD & SCALP: normocephalic and atraumatic TEETH & GINGIVA: Yes abnormal tooth and associated gingiva upper right tender and with associated gingival edema, Yes caries, Yes multiple restorations and Yes poor dentition THROAT: posterior oropharynx normal Eye: COMMON NORMALS: Equal, round and reactive pupils present, EOMs intact bilaterally and conjunctivae normal CONJUNCTIVA: Yes conjunctivae normal PUPIL: Yes Equal, round and reactive pupils present Neck/C-Spine: COMMON NORMALS: full ROM, supple and no JVD Resp: COMMON NORMALS: normal respiratory effort, No retractions, No use of accessory muscles and clear to auscultation bilaterally AUSCULTATION: clear to auscultation bilaterally Cardio: COMMON NORMALS: no JVD, regular rate, regular rhythm, No clicks present (Cardio), No murmurs present (Cardio) and No rub (Cardio) RATE: regular rate RHYTHM: regular rhythm Extremity: COMMON NORMALS: normal to inspection, full ROM and capillary refill normal Psych: COMMON NORMALS: mental status grossly normal and Normal thought process present THOUGHT PROCESS: Normal thought process present Skin: COMMON NORMALS: no rashes or lesions noted GENERAL SKIN EXAM: no rashes or lesions noted Course Vital Signs: Vital signs: Vital Signs Temperature 98.0 F 04/25/24 20:21 Pulse Rate 84 04/25/24 20:21 Respiratory Rate 16 04/25/24 20:21 Blood Pressure 133/88 04/25/24 20:21 Pulse Oximetry 100 04/25/24 20:21 [facility] - Dental/Oral Medical Decision Making Patient has acute onset of right dental pain. Poor dentition noted on physical examination otherwise gingival edema and significant tenderness to palpation of the right upper dentition. Concerns for dental abscess that we will treat with steroids and antibiotics. She currently has appointment with dentist scheduled for next month, she will keep this and return with any new or worsening. No radiology studies performed this visit Discharge Plan Discharge Patient Disposition: Home Clinical Impression: Dental abscess Condition: Stable Prescriptions: New prednisone 20 mg tablet 60 mg PO ONCE 5 Days Qty: 15 0RF amoxicillin-pot clavulanate 875-125 mg tablet 1 tab PO BID 10 Days Qty: 20 0RF No Action hydrocodone-acetaminophen 10-325 mg tablet 1 tab PO .5 times a day PRN (Reason: pain) 30 Days Qty: 150 0RF Rx Instructions: fill on or after 08/04/21 hydrocodone-acetaminophen 10-325 mg tablet 1 tab PO .5 times a day PRN (Reason: pain) 30 Days Qty: 150 0RF Rx Instructions: fill on or after 09/03/21 fluoxetine 40 mg capsule PO DAILY omeprazole 20 mg capsule,delayed release(DR/EC) PO amitriptyline 25 mg tablet See Rx Instructions .ROUTE .COMPLEX Qty: 30 0RF Dose Instruction: TAKE 1 TABLET BY MOUTH AT BEDTIME Rx Instructions: TAKE 1 TABLET BY MOUTH AT BEDTIME hydrocodone-acetaminophen 5-325 mg tablet 1 tab PO Q6H PRN (Reason: pain) Qty: 14 0RF Discharge Orders: Discharge ED (Routine); Ordered 04/25/24 Ordered By: Ramiro Walker Referrals: Kelsea Gibbons FNP [Primary Care Provider] - Discharge Diet: Usual diet Discharge Activity: Increase activity as tolerated Patient Instructions: Dental Abscess (ED) Activity Restrictions/Additional Instructions: Take new prescription for prednisone, stop your other. Take antibiotics as prescribed. Keep follow-up with dentist. Take [place] at home. May also start taking Tylenol/ibuprofen for pain relief. Return with any new or worsening. 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
[2024-04-25] MEDS: amoxicillin-clav 875-125 mg Tablet 1 TAB PO (20:40)
[2024-04-25] MEDS: dexamethasone 10 mg/mL INJ IM (20:42)
[2024-04-25] MEDS: HYDROcodone-acetaminophen 5-325 mg Tablet 1 TAB PO (20:49)
== END 2024-04-25 20:56 | disposition home or self-care (01) ==
PROVIDERS: Emergency Provider Physician Assistant; PCP Nurse Practitioner Family
DX: K04.7 Periapical abscess without sinus (principal)
CPT/HCPCS: 96372; 99284; J1100

== ENCOUNTER 2024-05-06 00:32 | Emergency (ER) | payer MEDICAID, SELFPAY | END 2024-05-06 00:52 | disposition home or self-care (01) | LOC: ER 00:38 | PROVIDERS: Emergency Provider Family Medicine; PCP Nurse Practitioner Family | DX: Z53.21 Procedure and treatment not carried out due to patient leaving prior to being seen by health care provider (principal) | CPT/HCPCS: J0330; J1100; J1170; J2250; J2405; J2704; J3010; J3490 ==

== ENCOUNTER 2024-05-06 09:35 | Observation (INO) | payer MEDICAID, SELFPAY ==
[2024-05-06] VITALS (27 sets, daily range): BP systolic 97–144; BP diastolic 54–78; PULSE 74–106; RESP 14–20; TEMP 36.6–36.9; O2SAT 97–100; BMI 16.9; BMI 18.3
--- NOTE | 2024-05-06 10:01 | CTR_ITS ---
PROCEDURE INFORMATION: Exam: CT Abdomen And Pelvis With Contrast Exam date and time: 05/06/2024 10:37 AM Age: 33 years old Clinical indication: Abdominal pain; Generalized TECHNIQUE: Imaging protocol: Computed tomography of the abdomen and pelvis with contrast. Radiation optimization: All CT scans at this facility use at least one of these dose optimization techniques: automated exposure control; mA and/or kV adjustment per patient size (includes targeted exams where dose is matched to clinical indication); or iterative reconstruction. Contrast material: OMNI 350; Contrast volume: 75 ml; Contrast route: INTRAVENOUS (IV); COMPARISON: MR MRCP [id number] 11/28/2023 11:50 AM RADIATION DOSE METRICS: Total DLP (mGy-cm): 331.73 FINDINGS: Lungs: Lung bases are clear as visualized. Liver: There is mild fatty infiltration of the liver. There is mild intrahepatic biliary ductal dilatation. Gallbladder and biliary ducts: No definite gallstones are seen within the gallbladder. No pericholecystic inflammatory changes noted. The common bile duct measures 7-8 mm in size which is borderline enlarged for patient's age. No definite stones are noted within the duct. Pancreas: Normal. No ductal dilation. Spleen: Normal. No splenomegaly. Adrenal glands: Normal. No mass. Kidneys and ureters: Multiple nonobstructing renal calculi are noted on the left. No hydronephrosis is appreciated. No ureteral stones are noted. Right kidney is normal in appearance. Stomach and bowel: No dilated loops of large or small bowel is appreciated. There is a moderate amount of stool within the colon. Appendix: The appendix is dilated. There is periappendiceal fat stranding. Findings compatible with appendicitis. Intraperitoneal space: Unremarkable. No free air. No significant fluid collection. Vasculature: Unremarkable. No abdominal aortic aneurysm. Lymph nodes: Unremarkable. No enlarged lymph nodes. Urinary bladder: Unremarkable as visualized. Reproductive: Unremarkable as visualized. Bones/joints: Unremarkable. No acute fracture. Soft tissues: Unremarkable. CT/CT abdomen pelvis w con* [id number] IMPRESSION: 1. Appendicitis. 2. Fecal stasis. 3. Nephrolithiasis on the left. 4. Mild intrahepatic biliary ductal dilatation with borderline enlarged common bile duct. Please refer to report from MRCP exam performed on 11/28/2023.
--- NOTE | 2024-05-06 10:07 | XRR_ITS ---
PROCEDURE INFORMATION: Exam: XR Chest Exam date and time: 05/06/2024 10:43 AM Age: 33 years old Clinical indication: Other: Abd pain; Additional info: Sepsis TECHNIQUE: Imaging protocol: Radiologic exam of the chest. Views: 1 view. COMPARISON: CR XR chest 2V* [id number] 05/19/2022 12:46 PM FINDINGS: Lungs: Unremarkable. No consolidation. Pleural spaces: Unremarkable. No pleural effusion. No pneumothorax. Heart/Mediastinum: Unremarkable. No cardiomegaly. Bones/joints: Unremarkable. XR/XR chest 1V portable [id number] IMPRESSION: No acute findings.
[2024-05-06] MEDS: sodium chloride 0.9% 1,000 ML 999 ML IV (10:09)
[2024-05-06] MEDS: ondansetron 2 mg/ML SDV 2 mL 4 MG IVP ×2 (10:10→15:05)
[2024-05-06] MEDS: HYDROmorphone 1 mg/mL INJ 1 mL 0.5 MG IVP ×2 (10:13→11:16)
[2024-05-06 10:14] LABS: Basophils % 0.2 %; Eosinophils # 0.1 10^3/uL (0.0-0.8); Eosinophils % 0.5 %; Hematocrit 44.3 % (36-47); Lymphocytes # 2.1 10^3/uL (0.8-4.8); Lymphocytes % 11.8 %; Mean Corpuscular HGB Conc 31.4 g/dL (30-55); Mean Corpuscular Hemoglobin 26.5 pg (27-33); Mean Corpuscular Volume 84.4 fl (85-98); Mean Platelet Volume 9.2 fL (7.4-10.4); Monocytes % 5.6 %; Neutrophils # 14.28 10^3/uL (1.8-7.7); Neutrophils % 81.6 %; Nucleated Red Blood Cells % 0 %; Platelet Count 306 10^3/cmm (157-399); Red Blood Count 5.25 10^6/uL (3.85-5.65); Red Cell Distribution Width 13.3 % (12.1-15.1); White Blood Count 17.51 10^3/uL (3.29-11.43)
[2024-05-06 10:26] LABS: HCG, Serum Qual Negative (Negative)
[2024-05-06 10:29] LABS: Alanine Aminotransferase 12 U/L (0-33); Albumin Level 4.5 g/dL (3.5-5.2); Alkaline Phosphatase 85 U/L (35-105); Aspartate Amino Transferase 13 U/L (0-32); Blood Urea Nitrogen 5 mg/dL (6-20); Calcium 9.9 mg/dL (8.5-10.5); Carbon Dioxide 29 mmol/L (22-29); Chloride 100 mmol/L (98-107); Creatinine Clr Calc Pharmacy 118.0753; Globulin 3.1 g/dL (1.3-4.6); Glomerular Filtration Rate 140.4 mL/min (90-130); Glucose 109 mg/dL (65-115); Lipase 11 U/L (13-60); Osmolality Calculated 288 mOsm/kg (285-295); Sodium 140 mmol/L (136-145); Total Bilirubin 0.4 mg/dL (0.15-1.2); Total Protein 7.6 g/dL (6.6-8.7)
[2024-05-06 10:30] LABS: Lactic Sepsis W/Reflex 1.1 mmol/L (0.5-2.2)
[2024-05-06] MEDS: iohexol 350 mg/mL 500 mL Btl (per mL) IV (10:40)
[2024-05-06 11:15] LABS: Bilirubin Urine Negative (Negative); Blood Urine Negative (Negative); Glucose Urine UA Negative (Normal); Ketones Urine Negative (Negative); Leukocyte Esterase Urine Negative (Negative); Nitrate Urine Negative (Negative); Protein Urine Negative (Negative); Specific Gravity, Urine 1.024 (1.005-1.030); Urine Appearance Clear (CLEAR); Urine Color Yellow (Yellow); Urobilinogen Urine 0.2 mg/dL (Negative); pH Urine 8.5 (5-7)
[2024-05-06 11:18] LABS: Add Urine Microscopic? YES; Bacteria Urine None Seen /hpf; Hyaline Casts Urine 0-4 /lpf; RBC Urine 0-2 /hpf (0-2); Squamous Epithelial Cell Urine 0-5 /hpf (0-5); WBC Urine 0-5 /hpf (0-5)
[2024-05-06] MEDS: pantoprazole 40 mg SDV IVP (11:18)
[2024-05-06 11:23] LABS: Amphetamines Screen Urine Negative (Negative); Barbiturates Screen Urine Negative (Negative); Benzodiazepines Screen Urine Negative (Negative); Cocaine Screen Urine Negative (Negative); Opiate Screen Urine Positive (Negative); PCP Screen Urine Negative (Negative); THC Screen Urine Negative (Negative)
--- NOTE | 2024-05-06 11:35 | ED_ITS ---
HPI - Abdominal Pain 2 General: Chief Complaint: Abdominal Pain Stated Complaint: abd pain, vomitting bile Time Seen by Provider: 05/06/24 09:54 History of Present Illness: This patient is a 33-year-old white female who presents to the ER complaining of generalized abdominal pain. Patient states she was waiting in the emergency department last night for a long time and eventually left. She came back today due to increasing pain in the abdomen. She states she has been vomiting up bile. No fever. Patient has a history of fibromyalgia and chronic pain. No prior abdominal surgery. Associated Symptoms: Reports nausea and vomiting Related Data Home Medications Medication Instructions Recorded Confirmed fluoxetine 40 mg capsule mg PO DAILY 07/28/23 01/17/24 omeprazole 20 mg capsule,delayed mg PO 07/28/23 01/17/24 release Previous Rx's Medication Instructions Recorded hydrocodone 10 mg-acetaminophen 1 tab PO .5 times a day PRN pain 07/30/21 325 mg tablet 30 days #150 tabs hydrocodone 10 mg-acetaminophen 1 tab PO .5 times a day PRN pain 07/30/21 325 mg tablet 30 days #150 tabs amitriptyline 25 mg tablet See Rx Instructions .Route 12/28/21 .COMPLEX #30 tabs hydrocodone 5 mg-acetaminophen 325 1 tab PO Q6H PRN pain #14 tabs 09/01/23 mg tablet Allergies Allergy/AdvReac Type Severity Reaction Status Date / Time codeine Allergy NA Verified 05/06/24 10:06 Sulfa (Sulfonamide Allergy NA Verified 05/06/24 10:06 Antibiotics) Review of Systems 2 General: Reports: 10 or more systems reviewed and unremarkable except in HPI and below GI: Reports: abdominal pain, nausea and vomiting PFSH ED 2 PFSH: Medical History Joint pain Fibromyalgia Opioid contract exists Encounter for smoking cessation counseling Encounter for long-term opiate analgesic use Opioid contract exists Hx of fracture of lower leg screws and plate in right leg Hx of fracture of wrist 2014 left Tobacco use Chronic narcotic use Low back pain Surgical History S/P ORIF (open reduction internal fixation) fracture Family History Father Cancer Mother Cancer Chronic kidney disease (CKD) Other CAD (coronary artery disease) Hypertension Lung disease Rheumatoid arthritis Denies family history of Diabetes Lupus Stroke Social History Alcohol intake: never Substance/Drug Use: never Marital status: Single Current occupational status: employed Physical Exam 2 Const: COMMON NORMALS: patient oriented x3 and no limitations GENERAL APPEARANCE: cooperative and in distress HENMT: COMMON NORMALS: normocephalic, atraumatic, Normal nasal mucous membranes and turbinates present, moist oral mucous membranes and oropharynx normal HEAD & SCALP: normal to inspection, normocephalic and atraumatic F VJ & SINUS: normal facial exam NOSE: Normal nasal mucous membranes and turbinates present Eye: COMMON NORMALS: Equal, round and reactive pupils present, EOMs intact bilaterally and conjunctivae normal GENERAL EYE: appearance normal, both eyes and all related structures CONJUNCTIVA: Yes conjunctivae normal PUPIL: Yes Equal, round and reactive pupils present Neck/C-Spine: COMMON NORMALS: supple and no JVD Chest: COMMONS NORMALS: normal inspection of the chest Resp: COMMON NORMALS: normal respiratory effort and clear to auscultation bilaterally AUSCULTATION: clear to auscultation bilaterally Cardio: COMMON NORMALS: no JVD, regular rate, regular rhythm, No gallops present (Cardio), No murmurs present (Cardio) and No rub (Cardio) RATE: r egular rate RHYTHM: regular rhythm GI: AUSCULTATION: Yes normoactive bowel sounds OTHER: Generalized abdominal tenderness with guarding. No rebound. : COMMON NORMALS: Yes no CVA tenderness BLADDER/KIDNEY EXAM: Yes no CVA tenderness Back/Pelvis: COMMON NORMALS: no CVA tenderness and thoracic and lumbar spine normal to inspection Extremity: COMMON NORMALS: normal to inspection Neuro: COMMON NORMALS: patient oriented x3 and CN's II-XII intact bilaterally Psych: COMMON NORMALS: mental status grossly normal, Normal thought process present and cooperative THOUGHT PROCESS: Normal thought process present Skin: COMMON NORMALS: no rashes or lesions noted, turgor normal and no jaundice GENERAL SKIN EXAM: no rashes or lesions noted and turgor normal Course 2 Vital Signs: Vital signs: Vital Signs Temperature 98.4 F 05/06/24 09:56 Pulse Rate 83 05/06/24 11:10 Respiratory Rate 18 10/13/24 11:16 Blood Pressure 121/77 05/06/24 11:10 Pulse Oximetry 99 05/06/24 11:10 Oxygen Delivery Me thod Room Air 05/06/24 11:10 MDM - Abdominal Pain Medical Decision Making CBC reveals a white blood cell count of 17.5. CMP was normal. Lipase normal. test negative. Urinalysis normal. Chest x-ray normal. CT scan of the abdomen pelvis was read by the radiologist. Appendix measures 11.5 mm and is inflamed consistent with acute appendicitis. I did contact Dr. Reva Restrepo, general surgeon. He would like Zosyn and Toradol administered. He will take her to the operating room from the emergency department. Patient was also given 2 doses of Dilaudid, Zofran, IV fluids and 40 mg of Protonix IV. She is stable. Lab Data 05/06/24 10:02 05/06/24 10:02 Labs/Radiology: Radiology Impressions Abdomen/Pelvis CT 05/06/24 10:01 IMPRESSION: 1. Appendicitis. 2. Fecal stasis. 3. Nephrolithiasis on the left. 4. Mild intrahepatic biliary ductal dilatation with borderline enlarged common bile duct. Please refer to report from [facility]CP exam performed on 11/28/2023. ADDENDUM: 05/06/24 1131 Addendum: The appendix measures a proximally 11.5 mm in diameter. COMMENT: THIS REPORT CONTAINS FINDINGS THAT MAY BE CRITICAL TO PATIENT CARE. The exam findings were verbally communicated by me to MANISH GUAJARDO via telephone conference at 11:29 AM CDT on 05/06/2024. The findings were acknowledged and understood. Chest X-Ray 05/06/24 10:07 IMPRESSION: No acute findings. Laboratory Results WBC 17.51 10^3/uL (3.29-11.43) H 05/06/24 10:02 RBC 5.25 10^6/uL (3.85-5.65) 05/06/24 10:02 Hgb 13.90 g/dL (11.27-16.99) 05/06/24 10:02 Hct 44.3 % (36-47) 05/06/24 10:02 MCV 84.4 fl (85-98) L 05/06/24 10:02 MCH 26.5 pg (27-33) L 05/06/24 10:02 MCHC 31.4 g/dL (30-55) 05/06/24 10:02 RDW 13.3 % (12.1-15.1) 05/06/24 10:02 Plt Count 306 10^3/cmm (157-399) 05/06/24 10:02 MPV 9.2 fL (7.4-10.4) 05/06/24 10:02 Neut % (Auto) 81.6 % 05/06/24 10:02 Lymph % (Auto) 11.8 % 05/06/24 10:02 [place] % (Auto) 5.6 % 05/06/24 10:02 Eos % (Auto) 0.5 % 05/06/24 10:02 Baso % (Auto) 0.2 % 05/06/24 10:02 Neut # (Auto) 14.28 10^3/uL (1.8-7.7) H 05/06/24 10:02 Lymph # (Auto) 2.1 10^3/uL (0.8-4.8) 05/06/24 10:02 [place] # (Auto) 1.0 10^3/uL (0.2-0.9) H 05/06/24 10:02 Eos # (Auto) 0.1 10^3/uL (0.0-0.8) 05/06/24 10:02 Baso # (Auto) 0.0 10^3/uL (0.0-0.1) 05/06/24 10:02 Nucleated RBC % (auto) 0 % 05/06/24 10:02 Nucleated RBCs # 0.0 /100WBC 05/06/24 10:02 Sodium 140 mmol/L (136-145) 05/06/24 10:02 Potassium 4.0 mmol/L (3.5-5.1) 05/06/24 10:02 Chloride 100 mmol/L (98-107) 05/06/24 10:02 Carbon Dioxide 29 mmol/L (22-29) 05/06/24 10:02 Anion Gap 15.0 (5-19) 05/06/24 10:02 BUN 5 mg/dL (6-20) L 05/06/24 10:02 Creatinine 0.5 mg/dL (0.5-0.9) 05/06/24 10:02 GFR Calculation 140.4 mL/min (90-130) H 05/06/24 10:02 Glucose 109 mg/dL (65-115) 05/06/24 10:02 Calculated Osmolality 288 mOsm/kg (285-295) 05/06/24 10:02 Lactic Acid 1.1 mmol/L (0.5-2.2) 05/06/24 10:02 Calcium 9.9 mg/dL (8.5-10.5) 05/06/24 10:02 Total Bilirubin 0.4 mg/dL (0.15-1.2) 05/06/24 10:02 AST 13 U/L (0-32) 05/06/24 10:02 ALT 12 U/L (0-33) 05/06/24 10:02 Alkaline Phosphatase 85 U/L (35-105) 05/06/24 10:02 Total Protein 7.6 g/dL (6.6-8.7) 05/06/24 10:02 Albumin 4.5 g/dL (3.5-5.2) 05/06/24 10:02 Globulin 3.1 g/dL (1.3-4.6) 05/06/24 10:02 Lipase 11 U/L (13-60) L 05/06/24 10:02 HCG, Qual Negative (Negative) 05/06/24 10:02 Urine Color Yellow (Yellow) 05/06/24 11:08 Urine Appearance Clear (CLEAR) 05/06/24 11:08 Urine pH 8.5 (5-7) A 05/06/24 11:08 Ur Specific [place] 1.024 (1.005-1.030) 05/06/24 11:08 Urine Protein Negative (Negative) 05/06/24 11:08 Urine Glucose (UA) Negative (Normal) 05/06/24 11:08 Urine Ketones Negative (Negative) 05/06/24 11:08 Urine Blood Negative (Negative) 05/06/24 11:08 Urine Nitrate Negative (Negative) 05/06/24 11:08 Urine Bilirubin Negative (Negative) 05/06/24 11:08 Urine Urobilinogen 0.2 mg/dL (Negative) 05/06/24 11:08 Ur Leukocyte Esterase Negative (Negative) 05/06/24 11:08 Urine RBC 0-2 /hpf (0-2) 05/06/24 11:08 Urine WBC 0-5 /hpf (0-5) 05/06/24 11:08 Ur Squamous Epith Cells 0-5 /hpf (0-5) 05/06/24 11:08 Amorphous Sediment Not Reportable 05/06/24 11:08 Urine Bacteria None seen /hpf (NONE) 05/06/24 11:08 Hyaline Casts 0-4 /lpf H 05/06/24 11:08 Urine Opiates Screen Positive ng/mL (Negative) H 05/06/24 11:08 Ur Barbiturates Screen Negative ng/mL (Negative) 05/06/24 11:08 Ur Phencyclidine Scrn Negative ng/mL (Negative) 05/06/24 11:08 Ur Amphetamines Screen Negative ng/mL (Negative) 05/06/24 11:08 U Benzodiazepines Scrn Negative ng/mL (Negative) 05/06/24 11:08 Urine Cocaine Screen Negative ng/mL (Negative) 05/06/24 11:08 U Marijuana (THC) Screen Negative ng/mL (Negative) 05/06/24 11:08 All radiology interpretation(s) finalized by discharge Discharge Plan Discharge Condition: Stable Prescriptions: No Action hydrocodone-acetaminophen 10-325 mg tablet 1 tab PO .5 times a day PRN (Reason: pain) 30 Days Qty: 150 0RF Rx Instructions: fill on or after 08/04/21 hydrocodone-acetaminophen 10-325 mg tablet 1 tab PO .5 times a day PRN (Reason: pain) 30 Days Qty: 150 0RF Rx Instructions: fill on or after 09/03/21 fluoxetine 40 mg capsule PO DAILY omeprazole 20 mg capsule,delayed release(DR/EC) PO amitriptyline 25 mg tablet See Rx Instructions .ROUTE .COMPLEX Qty: 30 0RF Dose Instruction: TAKE 1 TABLET BY MOUTH AT BEDTIME Rx Instructions: TAKE 1 TABLET BY MOUTH AT BEDTIME hydrocodone-acetaminophen 5-325 mg tablet 1 tab PO Q6H PRN (Reason: pain) Qty: 14 0RF Referrals: Kelsea Gibbons, [facility]REL AND RECEIVER [Primary Care Provider] - Coding Level of Care Code ED [employer] for [facility]
--- NOTE | 2024-05-06 12:13 | PM.HP ---
Providers/Chief Complaint Primary Care Provider: LUTHER Díaz Chief Complaint: abd pain, vomitting bile History of Present Illness Jennifer Danielle is a 33 year old female who presents to the emergency department with abdominal pain since yesterday night. Abdominal pain is mostly in the mesogastrium and is associated with also some epigastric burning. Workup done in the emergency department showed a white count of [address] scan of the abdomen pelvis with contrast showed evidence of an inflamed appendix with a maximum diameter of 11 mm. Review of Systems General: Reports: 10 or more systems reviewed and unremarkable except in HPI and below Medications/Allergies Home Medications Medication Instructions Recorded Confirmed Last Taken Type hydrocodone 10 mg-acetaminophen 1 tab PO .5 times a day PRN pain 07/30/21 01/17/24 Unknown Rx 325 mg tablet 30 days #150 tabs hydrocodone 10 mg-acetaminophen 1 tab PO .5 times a day PRN pain 07/30/21 01/17/24 Unknown Rx 325 mg tablet 30 days #150 tabs amitriptyline 25 mg tablet See Rx Instructions .Route 12/28/21 01/17/24 Unknown Rx .COMPLEX #30 tabs fluoxetine 40 mg capsule mg PO DAILY 07/28/23 01/17/24 Unknown History omeprazole 20 mg capsule,delayed mg PO 07/28/23 01/17/24 Unknown History release hydrocodone 5 mg-acetaminophen 325 1 tab PO Q6H PRN pain #14 tabs 09/01/23 01/17/24 Unknown Rx mg tablet Allergies Allergy/AdvReac Type Severity Reaction Status Date / Time codeine Allergy NA Verified 05/06/24 10:06 Sulfa (Sulfonamide Allergy NA Verified 05/06/24 10:06 Antibiotics) PFSH Acute PFSH: Medical History Joint pain Fibromyalgia Opioid contract exists Encounter for smoking cessation counseling Encounter for long-term opiate analgesic use Opioid contract exists Hx of fracture of lower leg screws and plate in right leg Hx of fracture of wrist 2014 left Tobacco use Chronic narcotic use Low back pain Surgical History S/P ORIF (open reduction internal fixation) fracture Family History Father Cancer Mother Cancer Chronic kidney disease (CKD) Other CAD (coronary artery disease) Hypertension Lung disease Rheumatoid arthritis Denies family history of Diabetes Lupus Stroke Social History Alcohol intake: never Substance/Drug Use: never Marital status: Single Current occupational status: employed Vitals/I&O/Wt Last Vital Signs Temp 98.4 F 05/06/24 09:56 Pulse 95 05/06/24 11:30 Resp 18 05/06/24 11:16 BP 115/77 05/06/24 11:30 Pulse Ox 100 05/06/24 11:30 O2 Del Method Room Air 05/06/24 11:30 05/05/24 05/06/24 05/06/24 22:59 06:59 14:59 Intake Total 1000 / 1000 Balance 1000 / 1000 Weight last 48 hrs Weight 105 lb Physical Exam Narrative: General : Patient is well developed , no acute distress, oriented x3 Head : Normal cephalic, a-traumatic. Nose : Mucous membranes are without erythema. Lungs : Equal chest rise bilaterally, no use of accessory muscles, trachea is midline. CV : Rate and rhythm are normal. Abdomen : Soft, there is tenderness in the lower abdomen especially in the right lower quadrant Extremities : No edema. Upper extremities are normal bilaterally. Back : non-tender to palpation, no CVA tenderness. Data 05/06/24 10:02 05/06/24 10:02 A&P Assessment and plan (1) Acute appendicitis: Plan After complete history, physical examination and review of all available clinical data the following is my assessment. This is a 33-year-old female who presents to the hospital with abdominal pain and elevated white count. CT scan showed evidence of acute appendicitis without perforation. I have offered the patient laparoscopic appendectomy for acute appendicitis, I discussed all recent benefits including the risks of intra-abdominal bleeding, infection, hernia, injury to the adjacent structures including the colon the small bowel the ureter and the bladder. Need for additional interventions, abscess formation. Need to conversion to open procedure. The patient shows understanding wishes to proceed. We had extensive discussion and I was able to answer all the questions of the patient had. Patient would like to be discharged after surgery. Attestations Medical Necessity Statement*: Possible discharge after surgery. Coding Level of Care Code Acute Code for [facility] Diagnoses Acute appendicitis K35.80
[2024-05-06] MEDS: ketorolac 30 mg/mL INJ IVP (12:25)
[2024-05-06] MEDS: piperacillin-tazobactam 4.5 GM in sodium chloride 0.9% (plus) 50 ML IV (12:38)
[2024-05-06] MEDS: BUPivacaine 0.25% INJ 10 mL INJECTION (13:02)
[2024-05-06] MEDS: lidocaine-epi 1% 20 mL INJ 10 ML INJECTION (13:02)
--- NOTE | 2024-05-06 13:05 | ANES.PREANE2 ---
Pre-Anesthetic Assessment Height/Weight: Height 5 ft 6 in Weight 105 lb Temp Pulse Resp BP Pulse Ox O2 Del Method 98.4 F 95 18 115/77 100 Room Air 05/06/24 09:56 05/06/24 11:30 05/06/24 11:16 05/06/24 11:30 05/06/24 11:30 05/06/24 11:30 Preop Diagnosis: Acute appendicitis Operation Date: 05/06/24 12:30 Proposed Procedures p Laparoscopic Appendectomy(Not Applicable) - Ramiro Diaz MD Was Beta Rubina taken within 24 hours: N/A Was Clonidine taken within 24 hours: N/A Last intake: Cereal at midnight Social Tobacco and No alcohol Prior chronic alcoholic, quit in 2014 Exam alert, oriented x 3, clear to auscultation bilaterally and regular rate & rhythm Airway Submandibular: within normal limits Cervical ROM: within normal limits Mallampati: Class III Dentition: other (Small mouth opening, multiple broken/chipped teeth. Patient was reportedly supposed to go to the dentist to have 2 teeth pulled today) Anesthetic Plan ASA status: 3E Anesthesia: General Other: No prior issues with anesthesia Patient ate cereal around midnight Patient reportedly has been experiencing emesis, reports bile color History of GERD, on omeprazole Long-term nicotine use Chronic pain-patient, on methadone. Took methadone today Prior history of seizures, none reported in the last 10 years. Not on AEDs Labs reviewed, WBC 17 Plan for GETA with RSI Medications/Allergies Home Medications Medication Instructions Recorded Confirmed Last Taken Type hydrocodone 10 mg-acetaminophen 1 tab PO .5 times a day PRN pain 07/30/21 01/17/24 Unknown Rx 325 mg tablet 30 days #150 tabs hydrocodone 10 mg-acetaminophen 1 tab PO .5 times a day PRN pain 07/30/21 01/17/24 Unknown Rx 325 mg tablet 30 days #150 tabs amitriptyline 25 mg tablet See Rx Instructions .Route 12/28/21 01/17/24 Unknown Rx .COMPLEX #30 tabs fluoxetine 40 mg capsule mg PO DAILY 07/28/23 01/17/24 Unknown History omeprazole 20 mg capsule,delayed mg PO 07/28/23 01/17/24 Unknown History release hydrocodone 5 mg-acetaminophen 325 1 tab PO Q6H PRN pain #14 tabs 09/01/23 01/17/24 Unknown Rx mg tablet Allergies Allergy/AdvReac Type Severity Reaction Status Date / Time codeine Allergy NA Verified 05/06/24 10:06 Sulfa (Sulfonamide Allergy NA Verified 05/06/24 10:06 Antibiotics) COUNTS INCLUDE 234 BEDS AT THE [facility] Anesthesia Medical History Joint pain Fibromyalgia Opioid contract exists Encounter for smoking cessation counseling Encounter for long-term opiate analgesic use Opioid contract exists Hx of fracture of lower leg screws and plate in right leg Hx of fracture of wrist 2014 left Tobacco use Chronic narcotic use Low back pain Surgical History S/P ORIF (open reduction internal fixation) fracture Family History Father Cancer Mother Cancer Chronic kidney disease (CKD) Other CAD (coronary artery disease) Hypertension Lung disease Rheumatoid arthritis Denies family history of Diabetes Lupus Stroke Social History Alcohol intake: never Substance/Drug Use: never Marital status: Single Current occupational status: employed Data Anesthesia 05/06/24 10:02 05/06/24 10:02 Short CBC 05/06/24 Range/Units 10:02 WBC 17.51 H (3.29-11.43) 10^3/uL Hgb 13.90 (11.27-16.99) g/dL Hct 44.3 (36-47) % MCV 84.4 L (85-98) fl Plt Count 306 (157-399) 10^3/cmm Neut % (Auto) 81.6 % Neut # (Auto) 14.28 H (1.8-7.7) 10^3/uL BMP 05/06/24 10:02 Sodium 140 Potassium 4.0 Chloride 100 Carbon Dioxide 29 BUN 5 L Creatinine 0.5 Glucose 109 Calcium 9.9 Liver Function 05/06/24 Range/Units 10:02 Total Bilirubin 0.4 (0.15-1.2) mg/dL AST 13 (0-32) U/L ALT 12 (0-33) U/L Alkaline Phosphatase 85 (35-105) U/L Albumin 4.5 (3.5-5.2) g/dL Urine 05/06/24 Range/Units 11:08 Urine Color Yellow (Yellow) Urine Appearance Clear (CLEAR) Urine pH 8.5 A (5-7) Ur Specific [place] 1.024 (1.005-1.030) Urine Protein Negative (Negative) Urine Glucose (UA) Negative (Normal) Urine Ketones Negative (Negative) Urine Nitrate Negative (Negative) Urine Bilirubin Negative (Negative) Ur Leukocyte Esterase Negative (Negative) Urine RBC 0-2 (0-2) /hpf Urine WBC 0-5 (0-5) /hpf Cardiac Studies: No Data to Display
--- NOTE | 2024-05-06 14:24 | P.OP_ITS ---
Operative Report Date of procedure: May 06, 2024 Pre-op diagnosis: Acute appendicitis Post-op diagnosis: Acute appendicitis Post-op findings: Inflamed appendix, there was significant inflammation of the periappendiceal tissue, the appendix was located in a retrocecal position, there were adhesions from the cecum to the anterior abdominal wall as well from the ascending colon to the anterior abdominal wall. No evidence of perforation or abscess noted Procedure done: Laparoscopic appendectomy Specimens removed/disposition: Appendix Surgeon: Ramiro Diaz MD Business Continuity Coordinator: [facility] Staff Estimated blood loss: 10 Brief History: 33-year-old female who presents with acute appendicitis verified by imaging. To discussion of all the risk and benefits as documented in my preop note with side to proceed to the OR for laparoscopic possible open appendectomy. Procedure: Patient was brought into the OR, she was placed in a supine position. General anesthesia was given. The abdomen was prepped and draped in the usual sterile fashion. The abdomen was accessed via infraumbilical incision with an open technique, Medley trocar was placed and fixed to the fascia with #0 Vicryl. Initial pneumoperitoneum was obtained and no evidence of visceral injury during entry was noted. Additional 5 mm trocars were placed in the suprapubic and left lower quadrant position under direct visualization. It was immediately apparent that there were significant adhesions from the omentum to the anterior abdominal wall and to the ascending colon and cecum to the anterior abdominal wall. The colon appeared to be very elongated and the cecum was lying all the way down in the pelvis. I carefully left the cecum and I was able to visualize the base of the appendix, the base of the appendix appeared healthy but then the appendix appeared to dive posterior to the cecum, in order to better visualize the area I took down some of the additions of the cecum to the anterior abdominal wall to provide better exposure. At this point it was apparent that the appendix was retrocecal and I decided to proceed with a retrograde dissection. I made a call in the mesoappendix at the level of the base of the appendix with a [place] dissector. I then transected the appendix at the base with a 45 mm blue load Endo DOUGLAS stapler. The appendix line appeared healthy, no evidence of bleeding. I then proceeded to dissect the mesoappendix from the base of the appendix to the tube, I did this with careful blunt dissection and LigaSure. Once the tip of the appendix was completely liberated no evidence of bleeding was noted on the base of the appendix and there was no evidence of injury to adjacent structures. I then retrieved the specimen in an Endo Catch bag through the umbilical trocar site. I then proceeded to irrigate the area where the appendix was located as well as the pelvis, hemostasis was verified and the staple line appeared healthy. The medical trocar site was then closed using a Desean- Harris suture passer with a 0 Vicryl under direct visualization. The suprapubic trocar was removed under direct visualization and the left lower quadrant trocar was used to acquire the pneumoperitoneum and subsequently removed. Wounds were closed with #4-0 Monocryl. Dermabond was applied. Before closing the wounds look anesthesia was infiltrated. At the end of the procedure all counts were correct, the patient tolerated well the procedure and was transferred to PACU in stable condition.
--- NOTE | 2024-05-06 15:45 | ANE.PACU2 ---
Inpatient post-anesthesia follow up: Airway intact: Yes Vital signs: Temperature 97.8 F Pulse Rate 74 Respiratory Rate 17 Blood Pressure 117/77 Pulse Oximetry 96 Oxygen Delivery Me thod Room Air Oxygen Flow Rate Fraction of Inspir ed Oxygen Hydration adequate: Yes Nausea and vomiting: No Pain level: 1 Mental status: Baseline
[2024-05-06] MEDS: ketorolac 30 mg/mL INJ 15 MG IVP ×2 (16:35→22:10)
[2024-05-06] MEDS: sodium chloride 0.9% 1,000 ML 75 ML IV (16:45)
[2024-05-06] MEDS: acetaminophen 1,000 MG/100 ML PIGGYBACK 400 MG IV (16:58)
[2024-05-06] MEDS: HYDROmorphone 1 mg/mL INJ 1 mL 0.4 MG IVP ×2 (17:59→22:09)
--- NOTE | 2024-05-06 19:37 | PC.NURSE ---
Notified Dr. Diaz patients pain is not under control. Dr. Diaz gave verbal orders for Oxy IR 10 mg Q6H PO Scheduled, Zofran 8 mg Q6H PRN and Amitriptyline 25mg HS.
[2024-05-06] MEDS: ondansetron 2 mg/ML SDV 2 mL 8 MG IVP (20:26)
[2024-05-06] MEDS: amitriptyline 25 mg Tablet PO (20:27)
[2024-05-06] MEDS: oxyCODONE 5 mg IR Tab/Cap 10 MG PO (20:27)
[2024-05-06] MEDS: piperacillin-tazobactam 3.375 GM in sodium chloride 0.9% (plus) 50 ML IV (20:27)
[2024-05-07] VITALS (7 sets, daily range): BP systolic 117–119; BP diastolic 74–77; PULSE 59–74; RESP 16–17; TEMP 36.6–36.7; O2SAT 96–99
[2024-05-07] MEDS: acetaminophen 1,000 MG/100 ML PIGGYBACK 400 MG IV ×2 (00:43→08:13)
[2024-05-07] MEDS: HYDROmorphone 1 mg/mL INJ 1 mL 0.4 MG IVP ×2 (01:21→06:19)
[2024-05-07] MEDS: oxyCODONE 5 mg IR Tab/Cap 10 MG PO ×2 (02:59→08:14)
[2024-05-07] MEDS: piperacillin-tazobactam 3.375 GM in sodium chloride 0.9% (plus) 50 ML IV (04:13)
[2024-05-07] MEDS: ketorolac 30 mg/mL INJ 15 MG IVP (04:13)
[2024-05-07] MEDS: sodium chloride 0.9% 1,000 ML 75 ML IV (06:19)
[2024-05-07] MEDS: pantoprazole DR 40 mg Tablet PO (08:13)
--- NOTE | 2024-05-07 08:14 | P.DS_ITS ---
Discharge Providers Date of Admission: 05/06/24 15:39 Date of Discharge: May 07, 2024 Attending Provider at Admission: Ramiro Diaz MD Attending Provider at Discharge: Ramiro Diaz MD Primary Care Provider: LUTHER Díaz Diagnoses at Discharge Discharge Diagnosis (1) Acute appendicitis: Status: Resolved Reason for Visit Reason for Visit: abd pain, vomitting bile Hospital Course Hospital Course 33-year-old female who presents to the hospital with abdominal pain nausea and vomiting. CT scan of the abdomen pelvis was done and showed evidence of acute appendicitis. Patient was taken to the OR and laparoscope appendectomy was done without complications, there was no evidence of perforation appendix. 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 This morning patient is doing well still complains of pain overall along her back and some abdominal pulling with movement, abdominal examination is completely benign abdomen is soft nontender nondistended. The surgical incision are healing well. At this point we have decided to transition to the outpatient setting, patient has been given warning signs to return to the hospital and she will follow-up in our clinic in 2 weeks. Physical Exam GI: OTHER: Abdomen is soft nontender nondistended. Discharge Data Studies Completed and Pending Completed Studies During Hospitalization Category Date Time Status CT abdomen pelvis w con* [id number] Stat Cat Scan 05/06/24 10:01 Completed XR chest 1V portable [id number] Stat Exams 05/06/24 10:07 Completed Pending at discharge Category Date Time Status Basic Metabolic Panel AM LABS Lab 05/07/24 04:00 Ordered Basic Metabolic Panel AM LABS Lab 05/08/24 04:00 Ordered Basic Metabolic Panel AM LABS Lab 05/09/24 04:00 Ordered Complete Blood Count w/Auto AM LABS Lab 05/07/24 04:00 Ordered Complete Blood Count w/Auto AM LABS Lab 05/08/24 04:00 Ordered Complete Blood Count w/Auto AM LABS Lab 05/09/24 04:00 Ordered Magnesium AM LABS Lab 05/07/24 04:00 Ordered Magnesium AM LABS Lab 05/08/24 04:00 Ordered Magnesium AM LABS Lab 05/09/24 04:00 Ordered Phosphorus AM LABS Lab 05/07/24 04:00 Ordered Phosphorus AM LABS Lab 05/08/24 04:00 Ordered Phosphorus AM LABS Lab 05/09/24 04:00 Ordered Pathology: Surgical [PTH] Routine Pth 05/06/24 14:05 Ordered Radiology Impressions Abdomen/Pelvis CT 05/06/24 10:01 IMPRESSION: 1. Appendicitis. 2. Fecal stasis. 3. Nephrolithiasis on the left. 4. Mild intrahepatic biliary ductal dilatation with borderline enlarged common bile duct. Please refer to report from [facility] exam performed on 11/28/2023. ADDENDUM: 05/06/24 1131 Addendum: The appendix measures a proximally 11.5 mm in diameter. COMMENT: THIS REPORT CONTAINS FINDINGS THAT MAY BE CRITICAL TO PATIENT CARE. The exam findings were verbally communicated by me to MANISH GUAJARDO via telephone conference at 11:29 AM CDT on 05/06/2024. The findings were acknowledged and understood. Chest X-Ray 05/06/24 10:07 IMPRESSION: No acute findings. Laboratory Results WBC 17.51 10^3/uL (3.29-11.43) H 05/06/24 10:02 RBC 5.25 10^6/uL (3.85-5.65) 05/06/24 10:02 Hgb 13.90 g/dL (11.27-16.99) 05/06/24 10:02 Hct 44.3 % (36-47) 05/06/24 10:02 MCV 84.4 fl (85-98) L 05/06/24 10:02 MCH 26.5 pg (27-33) L 05/06/24 10:02 MCHC 31.4 g/dL (30-55) 05/06/24 10:02 RDW 13.3 % (12.1-15.1) 05/06/24 10:02 Plt Count 306 10^3/cmm (157-399) 05/06/24 10:02 MPV 9.2 fL (7.4-10.4) 05/06/24 10:02 Neut % (Auto) 81.6 % 05/06/24 10:02 Lymph % (Auto) 11.8 % 05/06/24 10:02 [place] % (Auto) 5.6 % 05/06/24 10:02 Eos % (Auto) 0.5 % 05/06/24 10:02 Baso % (Auto) 0.2 % 05/06/24 10:02 Neut # (Auto) 14.28 10^3/uL (1.8-7.7) H 05/06/24 10:02 Lymph # (Auto) 2.1 10^3/uL (0.8-4.8) 05/06/24 10:02 [place] # (Auto) 1.0 10^3/uL (0.2-0.9) H 05/06/24 10:02 Eos # (Auto) 0.1 10^3/uL (0.0-0.8) 05/06/24 10:02 Baso # (Auto) 0.0 10^3/uL (0.0-0.1) 05/06/24 10:02 Nucleated RBC % (auto) 0 % 05/06/24 10:02 Nucleated RBCs # 0.0 /100WBC 05/06/24 10:02 Sodium 140 mmol/L (136-145) 05/06/24 10:02 Potassium 4.0 mmol/L (3.5-5.1) 05/06/24 10:02 Chloride 100 mmol/L (98-107) 05/06/24 10:02 Carbon Dioxide 29 mmol/L (22-29) 05/06/24 10:02 Anion Gap 15.0 (5-19) 05/06/24 10:02 BUN 5 mg/dL (6-20) L 05/06/24 10:02 Creatinine 0.5 mg/dL (0.5-0.9) 05/06/24 10:02 GFR Calculation 140.4 mL/min (90-130) H 05/06/24 10:02 Glucose 109 mg/dL (65-115) 05/06/24 10:02 Calculated Osmolality 288 mOsm/kg (285-295) 05/06/24 10:02 Lactic Acid 1.1 mmol/L (0.5-2.2) 05/06/24 10:02 Calcium 9.9 mg/dL (8.5-10.5) 05/06/24 10:02 Total Bilirubin 0.4 mg/dL (0.15-1.2) 05/06/24 10:02 AST 13 U/L (0-32) 05/06/24 10:02 ALT 12 U/L (0-33) 05/06/24 10:02 Alkaline Phosphatase 85 U/L (35-105) 05/06/24 10:02 Total Protein 7.6 g/dL (6.6-8.7) 05/06/24 10:02 Albumin 4.5 g/dL (3.5-5.2) 05/06/24 10:02 Globulin 3.1 g/dL (1.3-4.6) 05/06/24 10:02 Lipase 11 U/L (13-60) L 05/06/24 10:02 HCG, Qual Negative (Negative) 05/06/24 10:02 Urine Color Yellow (Yellow) 05/06/24 11:08 Urine Appearance Clear (CLEAR) 05/06/24 11:08 Urine pH 8.5 (5-7) A 05/06/24 11:08 Ur Specific [place] 1.024 (1.005-1.030) 05/06/24 11:08 Urine Protein Negative (Negative) 05/06/24 11:08 Urine Glucose (UA) Negative (Normal) 05/06/24 11:08 Urine Ketones Negative (Negative) 05/06/24 11:08 Urine Blood Negative (Negative) 05/06/24 11:08 Urine Nitrate Negative (Negative) 05/06/24 11:08 Urine Bilirubin Negative (Negative) 05/06/24 11:08 Urine Urobilinogen 0.2 mg/dL (Negative) 05/06/24 11:08 Ur Leukocyte Esterase Negative (Negative) 05/06/24 11:08 Urine RBC 0-2 /hpf (0-2) 05/06/24 11:08 Urine WBC 0-5 /hpf (0-5) 05/06/24 11:08 Ur Squamous Epith Cells 0-5 /hpf (0-5) 05/06/24 11:08 Amorphous Sediment Not Reportable 05/06/24 11:08 Urine Bacteria None seen /hpf (NONE) 05/06/24 11:08 Hyaline Casts 0-4 /lpf H 05/06/24 11:08 Urine Opiates Screen Positive ng/mL (Negative) H 05/06/24 11:08 Ur Barbiturates Screen Negative ng/mL (Negative) 05/06/24 11:08 Ur Phencyclidine Scrn Negative ng/mL (Negative) 05/06/24 11:08 Ur Amphetamines Screen Negative ng/mL (Negative) 05/06/24 11:08 U Benzodiazepines Scrn Negative ng/mL (Negative) 05/06/24 11:08 Urine Cocaine Screen Negative ng/mL (Negative) 05/06/24 11:08 U Marijuana (THC) Screen Negative ng/mL (Negative) 05/06/24 11:08 Vitals Last Vital Signs Temp 98.0 F 05/07/24 04:00 Pulse 59 L 05/07/24 04:00 Resp 16 05/07/24 06:19 BP 119/74 05/07/24 04:00 Pulse Ox 96 05/07/24 06:19 O2 Del Method Room Air 05/07/24 04:00 Discharge Plan Discharge Patient Disposition: Home Condition: Stable Prescriptions: New amoxicillin-pot clavulanate 875-125 mg tablet 1 tab PO BID Qty: 14 0RF meloxicam 7.5 mg tablet 7.5 mg PO DAILY Qty: 7 0RF polyethylene glycol 3350 [Miralax] 17 gram powder in packet 17 g PO DAILY Qty: 14 0RF acetaminophen [Tylenol] 325 mg tablet 650 mg PO Q6H 7 Days Qty: 56 0RF Continued fluoxetine 40 mg capsule PO DAILY omeprazole 20 mg capsule,delayed release(DR/EC) PO amitriptyline 25 mg tablet See Rx Instructions .ROUTE .COMPLEX Qty: 30 0RF Dose Instruction: TAKE 1 TABLET BY MOUTH AT BEDTIME Rx Instructions: TAKE 1 TABLET BY MOUTH AT BEDTIME Discontinued hydrocodone-acetaminophen 10-325 mg tablet 1 tab PO .5 times a day PRN (Reason: pain) 30 Days Qty: 150 0RF Rx Instructions: fill on or after 08/04/21 hydrocodone-acetaminophen 10-325 mg tablet 1 tab PO .5 times a day PRN (Reason: pain) 30 Days Qty: 150 0RF Rx Instructions: fill on or after 09/03/21 hydrocodone-acetaminophen 5-325 mg tablet 1 tab PO Q6H PRN (Reason: pain) Qty: 14 0RF Discharge Orders: Discharge Order (Routine); Ordered 05/07/24 Ordered By: Ramiro Diaz Referrals: Kelsea Gibbons FNP [Primary Care Provider] - Discharge Diet: Advance as tolerated Discharge Activity: Limit activity as instructed Patient Instructions: Acute Wound Care (DC), Post Anesthesia Care Activity Restrictions/Additional Instructions: No heavy lifting for the next 6 weeks, walk is much as possible this will speed up your recovery. You can shower starting the day after tomorrow, let soap and water run over your wounds and then pat dry. Please return to the hospital you have fever chills or abdominal pain that is getting worse over time despite taking your methadone and additional pain medication. Please make sure to complete the whole course of antibiotics even if you are feeling completely fine. Please take daily stool softeners and laxatives to prevent constipation. Discharge Attestations Time Spent in Discharge Care*: less than 30 min Quality Metrics Clinical Quality Measures [ No reported AMI, CVA or VTE this stay] Coding Level of Care Code Acute Code for [facility] Diagnoses Acute appendicitis K35.80
--- NOTE | 2024-05-07 09:26 | PC.CHAP ---
Pastoral Care Encounter/Spiritual Assessment Type of Contact [] Declined archives director visit [] Patient/Family/Request visit [] Outpatient visit [] Follow-up visit [] Physician referral [] Code/Alert [x] Routine visit [] Staff referral [] Actively dying [] Patient sleeping [] Family support [] [] Out of room [] Palliative care [] [x] Receiving care in room [] Pre-surgical visit [] Trauma [] Long length of stay [] ICU visit [] Other: Relational/Emotional Strength [] Patient feels connected with others/family/visitors/staff [] Distress [] Loneliness/isolation [] Abandonment Spirituality of Patient [] Person of [place] [] Attends Adventism of their [place] [] Believes in Prayer [] Reads Bible or Jehovah'S Witness materials [] There are Spiritual issues to be addressed Information Specialist Interventions [x] Prayer [] Active listening [] Non-anxious presence [] Spiritual/emotional support [] Crisis/trauma care [] Spiritual counseling [] Bereavement support [] Provided bereavement packet [] Provided Bible/devotional materials [] Provided toy/stuffed animal, coloring book to patient or family member [] Provided Communion [] Anointing/[place] [] Salvation [] Completed spiritual assessment [] Other: Impact on Illness or Injury [] Angry [] Fearful [] Anxious [] Often cries [] Exhaustion [] Unable to work [] Unable to attend adventist [] Unable to walk/stand [] Unable to read [] Unable to drive [] Unable to eat/drink [] Unable to sleep [] Unable to be with family [] Patient intubated [] Other: Summary Time spent with patient
== END 2024-05-07 09:55 | disposition home or self-care (01) ==
LOC: ER 11:38 → OR 11:40 → MEDSURG 15:39
PROVIDERS: Admitting Provider Surgery; Emergency Provider Emergency Medicine; PCP Nurse Practitioner Family; Visit Provider Surgery
PROC: 0DTJ4ZZ Resection of Appendix, Percutaneous Endoscopic Approach (ICD-10-PCS; CPT 44970; principal; 2024-05-06 12:30)
DX: K35.80 Unspecified acute appendicitis (principal); M79.7 Fibromyalgia
CPT/HCPCS: 44970; 71045; 74177; 80053; 80306; 81001; 83605; 83690; 84703; 85025; 88304; 96365; 96375; 96376; 99285; G0378; J0131; J1170; J1885; J2405; J2470; J2543; J3490; J7030